=== PATIENT | male | born 1950 | race Asian ===

== ENCOUNTER 2025-09-15 06:04 | Inpatient (IN) | payer OTHER, MEDICAID ==
[2025-09-15] VITALS (8 sets, daily range): BP systolic 197; BP diastolic 94; PULSE 66–106; RESP 15–24; TEMP 103.2; O2SAT 96–100
[~2025-09-15] VITALS: Ht 165.1 cm; Wt 87.8 kg
--- NOTE | 2025-09-15 06:26 | ED.PDOC ---
History of Present Illness HPI Comments This is a 74-year-old male who comes in with chief complaint of shaking as well as a fever of 103. According to the patient's , the patient had dialysis starting at approximately 3:00 a.m. this morning. The patient did has full cycle and then after that the patient had chills and started shaking. They c alled 911 because the patient was stating that he was also having some shortness for breath. There has been no vomiting, diarrhea or hematemesis. The patient did not report these at home but EN route, the patient had one episode of vomiting that has somewhat dark brown. The paramedics state that the vital signs has been within normal limits. The patient's Accu-Chek was 140. The patient's oxygen saturation at that time was also 93%. Chief Complaint: General Weakness Time Seen by MD: 06:19 Reviewed Notes: Nurses Notes, Machine Filler Shredder Notes, Medications, Allergies (No al lergies to medications) Allergies: Coded Allergies: NO KNOWN ALLERGIES (Unverified , 09/15/25) Information Source: Patient, Emergency Med Personnel, Spouse Mode of Arrival: EMS Severity: Moderate Timing: Hours Duration: Since onset Prehospital treatment: Accucheck (140), Shipwright Helper, IVF, Other (The patient has a temperature of a 103) Associated signs and symptoms Shaking episode with fever and vomiting Past Medical History PAST MEDICAL HISTORY: ESRD, HTN Surgical History (Other): Peritoneal dialysis to the left lower quadrant Family History Family History: Reviewed,noncontributory to illness Social History Smoker: Non-Smoker Alcohol: Denies ETOH Use Drugs: Denies Drug Use Lives In: Home Constitutional: reports: chills, fever, weakness, others (Shaking episode that); denies: diaphoresis, fatigue, malaise, sweats EENTM: denies: blurred vision, double vision, ear bleeding, ear discharge, ear drainage, ear pain, ear ringing, eye pain, eye redness, hearing loss, mouth pain, mouth swelling, nasal discharge, nose bleeding, nose congestion, nose pain, photophobia, tearing, throat pain, throat swelling, voice changes, others Respiratory: reports: shortness of breath; denies: cough, hemoptysis, orthopnea, SOB at rest, SOB with excertion, stridor, wheezing, others Cardiovascular: denies: chest pain, dizzy spells, diaphoresis, Dyspnea on exertion, edema, irregular heart beat, left arm pain, lightheadedness, palpitations, PND, syncope, others Gastrointestinal: reports: vomiting; denies: abdomen distended, abdominal pain, blood streaked bowels, constipated, diarrhea, dysphagia, difficulty swallowing, hematemesis, melena, nausea, poor appetite, poor fluid intake, rectal bleeding, rectal pain, others Genitourinary: denies: burning, dysuria, flank pain, frequency, hematuria, inco ntinence, penile discharge, penile sore, pain, testicle pain, testicle swelling, urgency, others Neurological: denies: dizziness, fainting, headache, left sided numbness, left sided weakness, numbness, paresthesia, pre-existing deficit, right sided numbness, right sided weakness, seizure, speech problems, tingling, tremors, weakness, others Musculoskeletal: denies: back pain, gout, joint pain, joint swelling, muscle pain, muscle stiffness, neck pain, others Integumetry: denies: bruises, change in color, change in hair/nails, dryness, laceration, lesions, lumps, rash, wounds, others Allergic/Immunocompromised: denies: Difficulty Healing, Frequent Infections, Hives, Itching, others Hematologic/Lymphatic: denies: anemia, blood clots, easy bleeding, easy bruising, swollen glands, others Endocrine: denies: excessive hunger, excessive sweating, excessive thirst, excessive urination, flushing, intolerance to cold, intolerance to heat, unexplained weight gain, unexplained weight loss, others Psychiatric: denies: anxiety, bipolar disorder, depression, hopeless, panic disorder, schizophrenia, sleepless, suicidal, others Physical Exam General Appearance: Moderate Distress, Obese HEENT: Pale Conjuntivae (L), Pale Conjuntivae (R), Pharynx Normal, TMs Normal Neck: Full Range of Motion, Non-Tender, Normal, Normal Inspection Respiratory: Chest Non-Tender, Decreased Breath Sounds (Right side), No Accesso ry Muscle Use, Respiratory Distress Cardiovascular: No Edema, No JVD, No Murmur, No Gallop, Normal Peripheral Pulses, Regular Rate/Rhythm Breast Exam: Deferred Gastrointestinal: No Organomegaly, Non Tender, No Pulsatile Mass, Normal Bowel Sounds, Soft, Other (Peritoneal dialysis to the left lower quadrant) Genitalia: Deferred Pelvic: Deferred Rectal: Deferred Extremities: No calf tenderness, Normal capillary refill, No pedal edema Musculoskeletal : Apperance: Normal Neurologic: Alert, crusher feeder II-XII nml as Tested, Motor Weakness, Normal Affect, Normal Mood, No Sensory Deficits Cerebellar Function: Normal Reflexes: Normal Skin: Dry, Normal Color, Warm Lymphatic: No Adenopathy Was a procedure done? Was a procedure done?: No EKG EKG : Pulse Rate (adult): 87 [place]: Normal Cardiac Rhythm: NSR Hypertrophy: LAE ST: Nonsp Differential Dx Considerations may include: Appendicitis, cholecystitis, generalized weakness, dehydration X-Ray, Labs, Meds, VS Vital Signs Date Time Temp Pulse Resp B/P (MAP) Pulse Ox O2 Delivery O2 Flow Rate FiO2 09/15/25 06:26 87 09/15/25 06:10 103.7 90 18 141/82 96 103.7 09/15/25 06:06 87 Lab Test 09/15/25 07:04 Range/Units White Blood Count 16.1 H 4.4-10.8 10^3/uL Red Blood Count 4.03 L 4.5-5.90 10^6/uL Hemoglobin 12.3 L 13.5-17.5 g/dL Hematocrit 36.6 L 41.0-53.0 % Mean Corpuscular Volume 90.9 80.0-100.0 fL Mean Corpuscular Hemoglobin 30.5 28.0-32.0 pg Mean Corpuscular Hemoglobin Concent 33.6 32.0-36.0 g/dL Red Cell Distribution Width 13.6 11.8-14.3 % Platelet Count 179 140-450 10^3/uL Mean Platelet Volume 7.4 6.9-10.8 fL Neutrophils (%) (Auto) 95.6 H 37.0-80.0 % Lymphocytes (%) (Auto) 2.1 L 10.0-50.0 % Monocytes (%) (Auto) 1.0 0.0-12.0 % Eosinophils (%) (Auto) 0.8 0.0-7.0 % Basophils (%) (Auto) 0.5 0.0-2.0 % Neutrophils # (Auto) 15.4 H 1.6-8.6 10 ^3/uL Lymphocytes # (Auto) 0.3 L 0.4-5.4 10 ^3/uL Monocytes # (Auto) 0.2 0-1.3 10 ^3/uL Eosinophils # (Auto) 0.1 0-0.8 10 ^3/uL Basophils # (Auto) 0.1 0-0.2 10 ^3/uL Nucleated Red Blood Cells 0.0 % Sodium Level 138 136-145 mmol/L Potassium Level 4.6 3.5-5.1 mmol/L Chloride Level 104 98-107 mmol/L Carbon Dioxide Level 21 20-31 mmol/L Anion Gap 13 5-15 Blood Urea Nitrogen 46 H 9-23 mg/dL Creatinine 7.10 H 0.700-1.30 mg/dL Glomerular Filtration Rate Calc 8 >90 mL/min BUN/Creatinine Ratio 6.5 L 10.0-20.0 Serum Glucose 122 H 74-106 mg/dL Lactic Acid Level 2.3 *H 0.4-2.0 mmol/L Calcium Level 7.9 L 8.7-10.4 mg/dL Troponin I High Sensitivity 554 *H </=54 ng/L B-Type Natriuretic Peptide 222.36 0-100 pg/mL IV Hep-Lock was established. If we do administer seizure precautions we are limiting the fluid secondary to the patient having a history of ESRD Chest XR indicates: Right lower lobe airspace disease likely representing pneumonia. Follow-up x-rays recommended in 4-6 weeks to confirm resolution. There is a concern that the patient does have an ammonia. The patient will be started on vancomycin and Rocephin per sepsis protocol Again we are limiting the patient's fluid bolus. The patient has a white blood cell count of 16.1 The chemistry panel shows a BUN of 46 and a creatinine of 7.1 which is consistent with the patient's renal failure The patient's 1st lactic acid level is 2.3 The patient is being admitted with a diagnosis of sepsis Images Reviewed?: Images reviewed and evaluated by me Time of 1ST Reevaluation: 06:26 Reevaluation 1ST: Unchanged Patient Education/Counseling: Diagnosis, Treatment, Prognosis Family Education/Counseling: Diagnosis, Treatment, Prognosis SEPSIS Sepsis Screen Physician Orders Chest Portable (09/15/25 06:19) Urinalysis (09/15/25 06:19) Heplock Iv (09/15/25 06:19) Shipwright Helper (09/15/25 06:19) Blood Pressure (09/15/25 06:19) Pulse Oximetry (09/15/25 06:19) Blood Culture (09/15/25 06:19) Covid19 Antigen Ligia (09/15/25 ) Troponin-I Hs (09/15/25 07:23) Troponin-I Hs (09/15/25 09:23) Vital Signs Date Time Temp Pulse Resp B/P (MAP) Pulse Ox O2 Delivery O2 Flow Rate FiO2 09/15/25 06:26 87 09/15/25 06:10 103.7 90 18 141/82 96 103.7 09/15/25 06:06 87 Laboratory Tests Test 09/15/25 07:04 Lactic Acid Level 2.3 mmol/L (0.4-2.0) *H White Blood Count 16.1 10^3/uL (4.4-10.8) H Departure 1 Departure Time of Disposition: 08:09 Impression: Primary Impression: Sepsis Qualified Codes: A41.9 - Sepsis, unspecified organism Additional Impressions: Right lower lobe pneumonia Qualified Codes: J18.9 - Pneumonia, unspecified organism ESRD on dialysis Disposition: ADMITTED INPATIENT Admit to: Tele Condition: Fair Critical Care Note Critical Care Time?: Yes (45 min-critical care time only) Stability Stability form required: Yes Unstable for transfer: Telemetry monitoring (Telemetry monitoring required), ED Physician Assesment (Clinical assesment) Heart Score Heart Score: Heart Score Response (Comments) Value History N/A 0 EKG N/A 0 Age N/A 0 Risk Factors N/A 0 Troponin N/A 0 Total 0 I personally scribed for FERNANDO CHACON MD ([email or web address]) on 09/15/25 at 07:08. Electronically submitted by Agusto العراقي ([email or web address]). FERNANDO CHACON MD Sep 15, 2025 06:26
--- NOTE | 2025-09-15 07:01 | DVH ---
CHEST RADIOGRAPH Indication: weakness Technique: Single frontal view of the chest was obtained COMPARISON: None FINDINGS: Patchy airspace disease within the right lower lung. Left lung is clear. Cardiac silhouette is enlarged. No overt pulmonary edema. Bones and soft tissues demonstrate no significant abnormality. IMPRESSION: Right lower lobe airspace disease likely representing pneumonia. Follow-up x- rays recommended in 4-6 weeks to confirm resolution.
--- NOTE | 2025-09-15 07:07 | ECG ---
[facility] Test Date: 2025-09-15 Test Time: 06:06:59 Pat Name: SUSANA GARDUNO Department: ED Room: 0207T Gender: M Bunch Breaker: NORMAN : 1950 Requested By: EMERGENCY EMERGENCY Order Number: [id number] Reading MD: David Rush Measurements Intervals [place] Rate: 87 P: 76 [place]: 164 QRS: 7 QRSD: 145 T: -20 QT: 367 QTc: 442 Interpretive Statements Sinus rhythm LAE, consider biatrial enlargement Right bundle branch block Artifact in lead(s) V6 Electronically Signed On 09-16-2025 15:45:58 PST by David Rush Please click the below link to view image of tracing.
[2025-09-15 07:31] LABS: Hematocrit 36.6 % (41.0-53.0); Hemoglobin 12.3 g/dL (13.5-17.5); Mean Corpuscular Hemoglobin 30.5 pg (28.0-32.0); Mean Corpuscular Volume 90.9 fL (80.0-100.0); Nucleated Red Blood Cells % 0.0 %
[2025-09-15 07:51] LABS: Chloride 104 mmol/L (98-107); Potassium 4.6 mmol/L (3.5-5.1); Sodium 138 mmol/L (136-145)
[2025-09-15 07:52] LABS: Anion Gap 13 (5-15); Calcium 7.9 mg/dL (8.7-10.4); Carbon Dioxide 21 mmol/L (20-31)
[2025-09-15 07:57] LABS: BUN/Creatinine Ratio 6.5 (10.0-20.0); Blood Urea Nitrogen 46 mg/dL (9-23); Glucose 122 mg/dL (74-106)
[2025-09-15 08:05] LABS: Lactic Acid w/Reflex 2.3 mmol/L (0.4-2.0)
[2025-09-15] MEDS: VANCOMYCIN 1GM/250ML KIT 250 ML IV ONE (09:20)
[2025-09-15] MEDS: ACETAMINOPHEN 325 MG TAB PO ONE ×2 (09:43→15:51)
[2025-09-15 09:49] LABS: COVID19 ANTIGEN SOFIA FIA NEGATIVE (NEGATIVE)
[2025-09-15] MEDS: ENOXAPARIN SOD 100 MG/1 ML SYRINGE SC ONE (10:41)
[2025-09-15] MEDS: SODIUM CHLORIDE 0.9% 1,000 ML IV ONE (11:23)
[2025-09-15 11:46] LABS: Urine Protein, UAD 2+ (Negative)
--- NOTE | 2025-09-15 11:47 | DVHINCON2 ---
Date Seen: Sep 15, 2025 Referring Physician MD Gracie Reason for Consultation Elevated troponin History of Present Illness This is a pleasant 74-year-old man who presented to the emergency room via EMS with a chief complaint of ALOC earlier today. Information obtained from patient who is A&O x4 and at bedside. Complaint of generalized weakness associated with chills, a productive cough with clear sputum, pyrexia, and nausea and vomiting for the past two days. The patient developed episodes of confusions earlier today prompting family to call 911. Denies chest pain, palpitations, diaphoresis, or syncopal events. Denies significant history of cardiovascular disease. Presents with trending troponin levels with latest in the 1,200s ng/L. He has undergone multiple 12 lead electrocardiogram revealing a sinus rhythm with an associated right bundle branch block. Significant medical history includes hypertension, dyslipidemia, chronic kidney disease stage 4 on peritoneal dialysis, and obesity. Past Medical History Past medical history reviewed. No other significant than mentioned above. Past Surgical History Peritoneal dialysis access Right knee replacement Family History Family history reviewed. Not significant for cardiovascular disease. Social History Denies the use of illicit drugs, alcohol, or tobacco use. Allergies: Coded Allergies: NO KNOWN ALLERGIES (Unverified , 09/15/25) Home Meds Home medications reviewed. Current Medications Current Medications Medications (Trade) Dose Ordered Sig/Yuri Route PRN Reason Start Time Stop Time Status Last Admin Enoxaparin Sodium (Lovenox) 90 mg DAILY SC 09/16/25 10:00 Review of Systems Constitutional: Generalized weakness Ears, Nose, & Throat: No symptom reported Eyes: No symptom reported Neurological: ALOC Pulmonary/Respiratory: SOB with productive cough with clear sputum Cardiovascular: No symptom reported Gastrointestinal: N/V Genitourinary: No symptom reported Musculoskeletal: No symptom reported Skin: No symptom reported Psychiatric: No symptom reported Endocrine: No symptom reported Hemotologic/Lymphatic: No symptom reported Vital Signs Vital Signs Date Time Temp Pulse Resp B/P (MAP) Pulse Ox O2 Delivery O2 Flow Rate FiO2 09/15/25 10:00 74 22 117/69 (85) 95 09/15/25 09:43 98.7 09/15/25 08:25 Room Air* 0 21 Physical Exam General Appearance: Cooperative. Well developed. Obese. In no acute distress Head Exam: Normal inspection Neck Exam: Normal inspection. Non-tender. Normal alignment Pulmonary/Respiratory: Chest non-tender. Diminished R>L bilateral breath sounds Cardiovascular/Chest: Regular rate and rhythm. S1, S2. SR with associated RBBB. No murmurs. No JVD. Peripheral Pulses: 2+ Radial (R). 2+ Radial (L). 2+ Pedal (R). 2+ Pedal (L) Abdominal Exam: Normal bowel sounds. Soft. Ankle Exam: Negative ankle edema Lower extremities: Negative lower extremity edema Neuro/Mental Status: A&O x4. Coherent Thoughts/Psych: Normal thought pattern. Appropriate mood and affect. Good judgement and insight Appearance: In no acute distress Skin Exam: Normal inspection. Normal color. Warm. Dry Labs/Diagnostic Data Labs Test 09/15/25 11:07 09/15/25 10:39 09/15/25 10:35 09/15/25 09:51 Range/Units Troponin I High Sensitivity 2551 *H </=54 ng/L Lactic Acid Level 1.4 0.4-2.0 mmol/L Test 09/15/25 08:50 09/15/25 08:37 09/15/25 07:04 Range/Units SARS-CoV-2 Antigen (Rapid) Negative NEGATIVE Thyroid Stimulating Hormone (TSH) 1.14 0.55-4.78 uIU/mL White Blood Count 16.1 H 4.4-10.8 10^3/uL Red Blood Count 4.03 L 4.5-5.90 10^6/uL Hemoglobin 12.3 L 13.5-17.5 g/dL Hematocrit 36.6 L 41.0-53.0 % Mean Corpuscular Volume 90.9 80.0-100.0 fL Mean Corpuscular Hemoglobin 30.5 28.0-32.0 pg Mean Corpuscular Hemoglobin Concent 33.6 32.0-36.0 g/dL Red Cell Distribution Width 13.6 11.8-14.3 % Platelet Count 179 140-450 10^3/uL Mean Platelet Volume 7.4 6.9-10.8 fL Neutrophils (%) (Auto) 95.6 H 37.0-80.0 % Lymphocytes (%) (Auto) 2.1 L 10.0-50.0 % Monocytes (%) (Auto) 1.0 0.0-12.0 % Eosinophils (%) (Auto) 0.8 0.0-7.0 % Basophils (%) (Auto) 0.5 0.0-2.0 % Neutrophils # (Auto) 15.4 H 1.6-8.6 10 ^3/uL Lymphocytes # (Auto) 0.3 L 0.4-5.4 10 ^3/uL Monocytes # (Auto) 0.2 0-1.3 10 ^3/uL Eosinophils # (Auto) 0.1 0-0.8 10 ^3/uL Basophils # (Auto) 0.1 0-0.2 10 ^3/uL Nucleated Red Blood Cells 0.0 % Sodium Level 138 136-145 mmol/L Potassium Level 4.6 3.5-5.1 mmol/L Chloride Level 104 98-107 mmol/L Carbon Dioxide Level 21 20-31 mmol/L Anion Gap 13 5-15 Blood Urea Nitrogen 46 H 9-23 mg/dL Creatinine 7.10 H 0.700-1.30 mg/dL Glomerular Filtration Rate Calc 8 >90 mL/min BUN/Creatinine Ratio 6.5 L 10.0-20.0 Serum Glucose 122 H 74-106 mg/dL Hemoglobin A1c 5.4 <5.7 % A1C Calcium Level 7.9 L 8.7-10.4 mg/dL B-Type Natriuretic Peptide 222.36 0-100 pg/mL Assessment Sepsis with pneumonia Non ST-elevation myocardial infarction, ?Type I Rule out structural heart disease Right bundle branch block Hypertension Dyslipidemia CKD stage 4 on peritoneal dialysis Obesity Plan/Recommendation (Dr. Rush) Case discussed in full detail with Dr. Rush. The patient presents with sepsis secondary to pneumonia, non-progressive ST-T wave changes, and he is chest pain- free. Suspected as a possible NSTEMI type 2. We will continue troponin trends and initiate therapeutic Lovenox along with loading dose of ASA. In the meantime, obtain a transthoracic echocardiogram to rule out structural heart disease. Continue chest pain protocol. Monitor ECG changes. We will continue monitor closely. Further orders per clinical course. Thank you for allowing us to participate in this patient's care. Please call if you have any questions or concerns. Critical care time: 45 minutes. This medical document was created using an electronic medical record system with voice recognition software and computerized dictation system. Although this document has been carefully reviewed, there might still be some phonetic and typographical errors. Occasional wrong-word or ``sound-alike substitutions may have occurred due to the inherent limitations of voice recognition software. These areas are purely typographical due to imperfections of the software programs and do not reflect any compromise in the patient's medical care. Please read the chart carefully and recognize, using context, where these substitutions have occurred. Plan discussed with: Patient, Spouse, Other NYHA Physical activity limitations: NA Date of Service: Sep 15, 2025 Billing Provider: CELENA CAT Cardiology Common Codes: [id number] CARE 30-74 MIN CELENA CAT Sep 15, 2025 11:47
[2025-09-15 12:16] LABS: Triglycerides 74.0 mg/dL (< 150)
[2025-09-15 12:17] LABS: Magnesium 1.9 mg/dL (1.6-2.6)
[2025-09-15 12:18] LABS: Cholesterol 131.0 mg/dL (< 200); HDL Cholesterol 50.0 mg/dL (40-59)
[2025-09-15] MEDS ORDERED: NITROGLYCERIN 0.4 MG SL TAB SL PRN ×2 (12:30→17:30)
[2025-09-15] MEDS ORDERED: MORPHINE SULFATE INJ 2 MG/ml SYRG IV PRN ×2 (12:30→17:30)
--- NOTE | 2025-09-15 13:27 | DVHSR ---
APPROVED REPORT EXAM: LIMITED Two-dimensional and M-mode echocardiogram with Doppler and color Doppler. Blood Pressure: 112/64 mmHg INDICATION Arrhythmia NSTEMI RISK FACTORS Height: 65, Weight: 190 DIMENSIONS LVDd 4.5 (3.8-5.7cm) LA (2D) (1.9-4.0cm) Aortic Root (2.0-3.7cm) LVDs 3.2 (2.5-4.0cm) LA (MM) (1.9-4.0cm) Aortic Cusp Exc (1.5-2.0cm) EF (%) 55.0 (55-70%) Rt. Atrium (1.9-4.0cm) Asc. Aorta cm Mitral Valve Mitral Mitral Stenosis E wave 1.17m/s MV Mean GR. mmHg A wave 0.97m/s MV Peak GR. mmHg E/A ratio 1.2 2D MVA cm2 DECEL Time 192ms PRESS 1/2 Time ms Aortic Valve Aortic Valve Aortic Stenosis V1 1.18m/s AO Mean GR. 12mmHg V2 2.39m/s AO Peak GR. 23mmHg AI P 1/2 Time 468.75ms Other Information Technically limited study due to body habitus, patient position and patient moving throughout the whole study. Conclusion Technically good study. Difficult acoustic windows and off axis views. Aortic root enlargement. Valves are normal. Mild dilation of the sinuses of Valsalva. EF of 60% with normal RV function. Mild aortic insufficiency. No pericardial effusion masses or vegetations.
[2025-09-15] MEDS ORDERED: SIMV20TA20 PO (15:06)
[2025-09-15] MEDS ORDERED: CARV25TA55 PO (15:06)
[2025-09-15] MEDS ORDERED: LOSA-535 PO (15:06)
[2025-09-15] MEDS ORDERED: SEVE800T10 PO (15:06)
[2025-09-15] MEDS ORDERED: AMLO1TAB22 PO (15:06)
[2025-09-15] MEDS ORDERED: HYDR50TA47 PO (15:06)
--- NOTE | 2025-09-15 15:10 | DVHHP2 ---
History of Present Illness Reason for Visit: SOB History of Present Illness Jaime Aparicio is a 74-year-old male with past medical history of ESRD on PD and hypertension who presents to the ED with fever, chills, and shortness of breath while finishing up dialysis on his own. Per Juanain at bedside she reports that he does dialysis himself nightly. Patient also reports that he is compliant with his medications. Patient also reports that he ambulates with a cane. Patient denies any recent trauma or injury, recent sick contacts, recent travels, chest pain, abdominal pain, nausea, vomiting, diarrhea, or urinary symptoms. Cardiovascular: HTN Renal/: Chronic renal failure Past Surgical History: Other (PD catheter) Family History: None Smoke: No ALCOHOL: none Drugs: None Lives: with Family Domestic Violence: Neg Review of Systems Constitutional: Yes: Fever, Chills Respiratory: Shortness of breath Allergies: Coded Allergies: NO KNOWN ALLERGIES (Unverified , 09/15/25) Medications Current Medications Medications Dose Ordered Sig/Yuri Route Start Time Stop Time Status Last Admin Dose Admin Enoxaparin Sodium 90 mg DAILY SC 09/16/25 10:00 Nitroglycerin 0.4 mg Q5MINP PRN SL 09/15/25 12:30 Morphine Sulfate 2 mg Q30M PRN IV 09/15/25 12:30 Exam Vital Signs Vital Signs Date Time Temp Pulse Resp B/P (MAP) Pulse Ox O2 Delivery O2 Flow Rate FiO2 09/15/25 14:00 65 20 114/64 (81) 100 09/15/25 12:00 98.9 98.9 09/15/25 08:25 Room Air* 0 21 General Appearance: Alert, Oriented X3, Cooperative, mild distress HEENT: Atraumatic, PERRLA, EOMI, Mucous membr. moist/pink Respiratory: Other (Increased work of breathing) Cardiovascular: Regular rate, Normal S1, Normal S2 Abdominal: Normal bowel sounds, Soft Extremities: No clubbing, No cyanosis Neuro: Normal speech, Normal tone, Sensation intact Psych/Mental Status: Mental status NL, Mood NL Labs/Xrays Labs Test 09/15/25 11:07 09/15/25 10:39 09/15/25 10:35 09/15/25 09:51 Range/Units Urine Color Light-yellow Yellow Urine Clarity Clear Clear Urine pH 7.5 5.0-9.0 Urine Specific Clear 1.012 1.001-1.035 Urine Protein 2+ H Negative Urine Ketones Negative Negative Urine Blood Trace H Negative /uL Urine Nitrite Negative Negative Urine Bilirubin Negative Negative Urine Urobilinogen Normal Negative mg/dL Urine Leukocyte Esterase Negative Negative /uL Urine RBC None seen 0 - 3 /hpf Urine Microscopic WBC 0-3 /HPF Urine Squamous Epithelial Cells None seen <5 /hpf Urine Bacteria None seen None Seen /hpf Urine Glucose Trace Normal mg/dL Troponin I High Sensitivity 2551 *H </=54 ng/L Influenza Type A Antigen Negative Negative Influenza Type B Antigen Negative Negative Lactic Acid Level 1.4 0.4-2.0 mmol/L Test 09/15/25 08:50 09/15/25 08:37 09/15/25 07:04 Range/Units SARS-CoV-2 Antigen (Rapid) Negative NEGATIVE Magnesium Level 1.9 1.6-2.6 mg/dL Triglycerides Level 74 < 150 mg/dL Cholesterol Level 131 < 200 mg/dL LDL Cholesterol 67 < 100 mg/dL HDL Cholesterol 50 40-59 mg/dL Thyroid Stimulating Hormone (TSH) 1.14 0.55-4.78 uIU/mL White Blood Count 16.1 H 4.4-10.8 10^3/uL Red Blood Count 4.03 L 4.5-5.90 10^6/uL Hemoglobin 12.3 L 13.5-17.5 g/dL Hematocrit 36.6 L 41.0-53.0 % Mean Corpuscular Volume 90.9 80.0-100.0 fL Mean Corpuscular Hemoglobin 30.5 28.0-32.0 pg Mean Corpuscular Hemoglobin Concent 33.6 32.0-36.0 g/dL Red Cell Distribution Width 13.6 11.8-14.3 % Platelet Count 179 140-450 10^3/uL Mean Platelet Volume 7.4 6.9-10.8 fL Neutrophils (%) (Auto) 95.6 H 37.0-80.0 % Lymphocytes (%) (Auto) 2.1 L 10.0-50.0 % Monocytes (%) (Auto) 1.0 0.0-12.0 % Eosinophils (%) (Auto) 0.8 0.0-7.0 % Basophils (%) (Auto) 0.5 0.0-2.0 % Neutrophils # (Auto) 15.4 H 1.6-8.6 10 ^3/uL Lymphocytes # (Auto) 0.3 L 0.4-5.4 10 ^3/uL Monocytes # (Auto) 0.2 0-1.3 10 ^3/uL Eosinophils # (Auto) 0.1 0-0.8 10 ^3/uL Basophils # (Auto) 0.1 0-0.2 10 ^3/uL Nucleated Red Blood Cells 0.0 % Sodium Level 138 136-145 mmol/L Potassium Level 4.6 3.5-5.1 mmol/L Chloride Level 104 98-107 mmol/L Carbon Dioxide Level 21 20-31 mmol/L Anion Gap 13 5-15 Blood Urea Nitrogen 46 H 9-23 mg/dL Creatinine 7.10 H 0.700-1.30 mg/dL Glomerular Filtration Rate Calc 8 >90 mL/min BUN/Creatinine Ratio 6.5 L 10.0-20.0 Serum Glucose 122 H 74-106 mg/dL Hemoglobin A1c 5.4 <5.7 % A1C Calcium Level 7.9 L 8.7-10.4 mg/dL B-Type Natriuretic Peptide 222.36 0-100 pg/mL CHEST RADIOGRAPH Indication: weakness Technique: Single frontal view of the chest was obtained COMPARISON: None FINDINGS: Patchy airspace disease within the right lower lung. Left lung is clear. Cardiac silhouette is enlarged. No overt pulmonary edema. Bones and soft tissues demonstrate no significant abnormality. IMPRESSION: Right lower lobe airspace disease likely representing pneumonia. Follow-up x- rays recommended in 4-6 weeks to confirm resolution. SEPSIS Sepsis Screen Date sepsis recognized/suspect: Sep 15, 2025 Time Sepsis recognized/suspect: 824 Recent Procedure: No On Antibiotic Therapy: No Respiratory Rate >20: No Heart Rate >90: No Temp<36 C (96.8 F) or >38.3 C: No SBP <90 or MAP <65 mmHG: No New Acute Mental Status Change: No Is the patient on CPAP, BIPAP,: No Physician Orders * Cardiology Consult (09/15/25 09:13) Echo 2d Mode Cardiac Dop (09/15/25 10:19) Enoxaparin Sodium (Lovenox) (09/16/25 10:00) Troponin-I Hs (09/15/25 14:00) Troponin-I Hs (09/15/25 16:00) Nitroglycerin Sublingual (Ntrostat Subli (09/15/25 12:30) Morphine Sulfate Injection (09/15/25 12:30) Stat Ekg For Chest Pain (09/15/25 12:22) Notify Of Changes From Base (09/15/25 12:22) Scale Technician For 24 Hours (09/15/25 12:22) Emergency Dysrhythmia Protocol (09/15/25 12:22) Rhythm Strips Once Every Shift (09/15/25 12:22) Oxygen By Nasal Cannula (09/15/25 12:22) Vital Signs Date Time Temp Pulse Resp B/P (MAP) Pulse Ox O2 Delivery O2 Flow Rate FiO2 09/15/25 14:00 65 20 114/64 (81) 100 09/15/25 12:00 98.9 74 15 117/58 (77) 95 98.9 09/15/25 12:00 74 09/15/25 11:54 73 09/15/25 10:00 74 22 117/69 (85) 95 09/15/25 09:43 98.7 09/15/25 08:52 74 09/15/25 08:25 73 20 97 Room Air* 0 21 09/15/25 08:25 99.4 73 20 112/64 (80) 97 99.4 Laboratory Tests Test 09/15/25 07:04 09/15/25 09:51 Lactic Acid Level 2.3 mmol/L (0.4-2.0) *H 1.4 mmol/L (0.4-2.0) White Blood Count 16.1 10^3/uL (4.4-10.8) H Medications Medications Dose Ordered Sig/Yuri Route Start Time Stop Time Status Last Admin Dose Admin Aspirin 325 mg ONCE ONCE PO 09/15/25 10:30 09/15/25 10:33 DC 09/15/25 10:40 325 MG Ceftriaxone Sodium 50 ml @ 100 mls/hr ONCE ONCE IV 09/15/25 08:15 09/15/25 08:52 DC 09/15/25 08:55 100 MLS/HR Enoxaparin Sodium 90 mg ONCE ONCE SC 09/15/25 10:30 09/15/25 10:33 DC 09/15/25 10:41 90 MG Sodium Chloride 1,000 ml @ 1,000 mls/hr Q1H ONCE IV 09/15/25 11:15 09/15/25 12:14 DC 09/15/25 11:23 1,000 MLS/HR Vancomycin HCl 250 ml @ 250 mls/hr ONCE ONCE IV 09/15/25 08:15 09/15/25 09:14 DC 09/15/25 09:20 250 MLS/HR Assessment/Plan Assessment/Plan Assessment Pyrexia NSTEMI likely type 2 Leukocytosis likely due to pneumonia Lactic acidosis rule out sepsis versus SIRS History of ESRD on peritoneal dialysis History of hypertension Plan Admit to tele Antipyretics Cooling measures Duo nebs Antiemetics Pain management Blood cultures Lactic noted Flu test UA COVID test Nitro given in ED NS 1 L given in ED IV antibiotics-vancomycin + ceftriaxone Troponin noted Mag level TSH Hemoglobin A1c Lipid Echo BNP Chest x-ray EKG Diet Home medications reconciled DVT prophylaxis-therapeutic Lovenox PUD prophylaxis-PPIs Discussed plan of care with patient and nurse Nephrology consult Cardiology consulted by ED PT eval-patient uses cane with ambulation [id number] Preventive counseling healthy eating habits, physical activity, and regular checkups Plan discussed with: Patient, Spouse Date of Service: Sep 15, 2025 Billing Provider: GABRIELE LAM Common Visit Codes: [id number] INP/OBS CARE (HIGH) Secondary Visit Codes: [id number] COUNSELING IND GABRIELE LAM Sep 15, 2025 15:10
[2025-09-15] MEDS ORDERED: VANCOMYCIN PER PHARMACY 0 MG IV SCH (15:15)
[2025-09-15] MEDS: ALBUTEROL SULF 2.5 MG/0.5ML(0.5%) NEB SOLN NEB ONE (16:12)
[2025-09-15] MEDS: hydrALAZINE HCL 20 MG/ML VL IV ONE (16:46)
[2025-09-15 17:11] LABS: INR 1.08 (0.9-1.15); Partial Thromboplastin Time 46.7 SEC (24.5-34.5); Prothrombin Time 11.4 sec (9.3-11.8)
[2025-09-15] MEDS: MAGNESIUM SULFATE 1GM/100ML 100 ML IV ONE (18:10)
[2025-09-15] MEDS: SEVELAMER 800 MG TAB PO SCH (18:10)
[2025-09-15] MEDS: PERITONEAL DIALYSIS 2.5% SOLN 2,000 ML IP SCH (19:01)
[2025-09-15] MEDS: ALBUTEROL SULF 2.5 MG/0.5ML(0.5%) NEB SOLN NEB SCH (19:11)
[2025-09-15] MEDS: IPRATROPIUM BROM 0.5 MG/2.5ML INH SOL NEB SCH (19:11)
[2025-09-15] MEDS: ACETAMINOPHEN 325 MG TAB PO PRN (20:45)
[2025-09-15] MEDS: HEPARIN DRIP/D5W 100UNITS/ML 250 ML IV SCH (21:31)
[2025-09-15] MEDS: CARVEDILOL 12.5 MG TAB PO SCH (22:00)
[2025-09-15] MEDS: ATORVASTATIN 20 MG TAB PO SCH (23:49)
[2025-09-16] VITALS (15 sets, daily range): BP systolic 95–123; BP diastolic 49–71; PULSE 56–77; RESP 16–19; TEMP 98.9–99.1; O2SAT 96–100
[2025-09-16 03:17] LABS: Hematocrit 32.2 % (41.0-53.0); Hemoglobin 10.8 g/dL (13.5-17.5); Mean Corpuscular Hemoglobin 30.7 pg (28.0-32.0); Mean Corpuscular Volume 91.6 fL (80.0-100.0); Nucleated Red Blood Cells % 0.0 %
[2025-09-16 03:59] LABS: INR 1.14 (0.9-1.15); Prothrombin Time 11.9 sec (9.3-11.8)
[2025-09-16 04:00] LABS: Partial Thromboplastin Time 103.6 SEC (24.5-34.5)
[2025-09-16] MEDS: HEPARIN DRIP/D5W 100UNITS/ML 250 ML IV SCH (05:09)
[2025-09-16 09:18] LABS: Hematocrit 33.8 % (41.0-53.0); Hemoglobin 11.1 g/dL (13.5-17.5); Mean Corpuscular Hemoglobin 30.4 pg (28.0-32.0); Mean Corpuscular Volume 92.6 fL (80.0-100.0); Nucleated Red Blood Cells % 0.0 %
--- NOTE | 2025-09-16 09:37 | DVHPN2 ---
Consult Progress Note Date Seen: Sep 16, 2025 Subjective Review of Systems: CVS:Normal, RESPIRATORY:Normal, NEURO:Normal Objective vital signs Vital Sign Date Time Temp Pulse Resp B/P (MAP) Pulse Ox O2 Delivery O2 Flow Rate FiO2 09/16/25 07:37 58 18 99 09/16/25 07:30 Nasal Cannula* 3 32 09/16/25 06:00 112/57 (75) 09/16/25 02:00 97.5 97.5 Total Intake and Output 09/15/25 09/15/25 09/16/25 15:00 23:00 07:00 Intake Total 1300 ml 100 ml 4000 ml Balance 1300 ml 100 ml 4000 ml medications Current Medications Medications Dose Ordered Sig/Yuri Route Start Time Stop Time Status Last Admin Dose Admin Nitroglycerin 0.4 mg Q5MINP PRN SL 09/15/25 12:30 Morphine Sulfate 2 mg Q30M PRN IV 09/15/25 12:30 Amlodipine Besylate 5 mg BID PO 09/15/25 22:00 Hydralazine HCl 50 mg TID PO 09/15/25 22:00 Losartan Potassium 100 mg DAILY PO 09/16/25 10:00 Sevelamer HCl 800 mg TIDWM PO 09/15/25 18:00 09/15/25 18:10 800 MG Carvedilol 25 mg Q12HR PO 09/15/25 22:00 Atorvastatin Calcium 20 mg HS PO 09/15/25 22:00 09/15/25 23:49 20 MG Furosemide 40 mg DAILY IV 09/16/25 10:00 Vancomycin HCl 0 ml @ 0 mls/hr PER PHARMACY IV 09/15/25 15:15 Ceftriaxone Sodium 50 ml @ 100 mls/hr DAILY@09 IV 09/16/25 09:00 Albuterol 2.5 mg Q4HWA NEB 09/15/25 18:00 09/16/25 07:30 2.5 MG Ipratropium Max 0.5 mg Q4HWA NEB 09/15/25 18:00 09/16/25 07:30 0.5 MG Aspirin 81 mg DAILY PO 09/16/25 10:00 Acetaminophen 650 mg Q6HP PRN PO 09/15/25 16:30 09/15/25 20:45 650 MG Peritoneal Dialysis Solution 2,000 ml @ 0 mls/hr Q6HR IP 09/15/25 18:00 09/16/25 06:07 1,500 MLS/HR Mupirocin 1 applic DAILY TOP 09/16/25 10:00 Nitroglycerin 0.4 mg Q5MINP PRN SL 09/15/25 17:30 UNV Morphine Sulfate 2 mg Q30M PRN IV 09/15/25 17:30 UNV Ceftriaxone Sodium 50 ml @ 100 mls/hr Q24H IV 09/16/25 23:00 Heparin Sodium/ Dextrose 250 ml @ 7 mls/hr Q24H IV 09/16/25 05:00 09/16/25 05:09 7 MLS/HR Examination: GENERAL:Normal, LUNGS:Normal, CVS:Normal, NEURO:Normal laboratory and microbiology Test 09/16/25 08:52 Range/Units Serum Glucose Pending Problem List/Assessment/Plan Problem List/Assessment/Plan Sepsis with pneumonia NSTEMI, likely type II secondary to above Right bundle branch block Hypertension Dyslipidemia CKD stage 4 on peritoneal dialysis Obesity * Transthoracic echocardiogram revealed LVEF 60% with normal RV function. Aort ic root enlargement. Mild aortic insufficiency * 12-lead electrocardiograms x 6 revealed a sinus rhythm with an associated right bundle branch block and non-discernible either progressive ST-T wave segment changes * Troponin levels peaked at 4,883 ng/L. BNP level 222 Plan/Recommendation (Dr. Rush) The patient presents with sepsis secondary to pneumonia, non-progressive ST-T wave segment changes, and he is chest pain-free. A transthoracic echocardiogram revealed a normal LV function and no wall motion abnormalities. Troponin levels have peaked and now trending down. Continue septic work-up and management per primary care team. There is no further cardiac work-up indicated at this time. Kindly call with any questions or concerns. Thank you for allowing us to participate in this patient's care. Critical care time: 30 minutes. This medical document was created using an electronic medical record system with voice recognition software and computerized dictation system. Although this document has been carefully reviewed, there might still be some phonetic and typographical errors. Occasional wrong-word or ``sound-alike substitutions may have occurred due to the inherent limitations of voice recognition software. These areas are purely typographical due to imperfections of the software programs and do not reflect any compromise in the patient's medical care. Please read the chart carefully and recognize, using context, where these substitutions have occurred. Plan discussed with: Patient, Spouse, Son Date of Service: Sep 16, 2025 Billing Provider: CELENA CAT Cardiology Common Codes: [id number]-[id number] CARE 30-74 MIN CELENA CAT Sep 16, 2025 09:36
[2025-09-16 09:40] LABS: Alanine Aminotransferase 27 U/L (7-40); Albumin 3.3 g/dL (3.2-4.8); Alkaline Phosphatase 73 U/L (46-116); Anion Gap 12 (5-15); BUN/Creatinine Ratio 5.6 (10.0-20.0); Carbon Dioxide 22 mmol/L (20-31); Chloride 103 mmol/L (98-107); Potassium 4.2 mmol/L (3.5-5.1); Sodium 137 mmol/L (136-145); Total Protein 6.2 g/dL (5.7-8.2)
[2025-09-16 09:41] LABS: Bilirubin, Total 0.3 mg/dL (0.2-1.0)
[2025-09-16 09:52] LABS: Blood Urea Nitrogen 38 mg/dL (9-23); Calcium 7.4 mg/dL (8.7-10.4); Glucose 111 mg/dL (74-106)
[2025-09-16] MEDS ORDERED: ENOXAPARIN SOD 100 MG/1 ML SYRINGE SC SCH (10:00)
--- NOTE | 2025-09-16 10:00 | DVH ---
Bilateral Chest Sonogram Date: 09/16/2025 08:50 AM Clinical history: PNA Findings: Limited sonographic evaluation of the right and left chest was performed to localize and guicho fluid for thoracentesis. No fluid is visualized. IMPRESSION: No free fluid END IMPRESSION:
[2025-09-16] MEDS: ENOXAPARIN SOD 100 MG/1 ML SYRINGE SC SCH (10:37)
[2025-09-16] MEDS: FUROSEMIDE 40 MG/4 ML VIAL IV SCH (10:37)
[2025-09-16] MEDS: LOSARTAN POTASSIUM 50 MG TAB PO SCH (10:39)
[2025-09-16 12:20] LABS: INR 1.07 (0.9-1.15); Partial Thromboplastin Time 56.0 SEC (24.5-34.5); Prothrombin Time 11.3 sec (9.3-11.8)
[2025-09-16] MEDS: MUPIROCIN 2% OINT 15gm or 22gm TOP SCH (13:34)
[2025-09-16] MEDS: VANCOMYCIN 500mg/100mL 100 ML IV ONE (14:00)
[2025-09-16] MEDS ORDERED: FURO20TA3 PO (15:46)
[2025-09-16] MEDS ORDERED: LACT10SO3 PO (15:46)
[2025-09-16] MEDS ORDERED: SEVE800T8 PO (15:46)
[2025-09-16] MEDS ORDERED: CALC0.25 PO (15:46)
[2025-09-16] MEDS ORDERED: B-CO-5 PO (15:46)
[2025-09-16] MEDS ORDERED: FAMO20TA10 PO (15:46)
[2025-09-16] MEDS ORDERED: ASPI-543 PO (15:46)
[2025-09-16] MEDS ORDERED: SODI10PA PO (15:46)
[2025-09-17] VITALS (19 sets, daily range): BP systolic 100–139; BP diastolic 57–80; PULSE 54–96; RESP 16–20; TEMP 97–99.2; O2SAT 94–100
[2025-09-17 05:58] LABS: Hematocrit 33.0 % (41.0-53.0); Hemoglobin 11.0 g/dL (13.5-17.5); Mean Corpuscular Hemoglobin 31.0 pg (28.0-32.0); Mean Corpuscular Volume 92.8 fL (80.0-100.0); Nucleated Red Blood Cells % 0.0 %
--- NOTE | 2025-09-17 14:43 | DVHPN2 ---
Reviewed: Care Plan, H&P, Labs, Medications Changes from previous H/P or p: No Changes General: Per HPI Respiratory: Shortness of breath Objective Vitals Vital Signs Date Time Temp Pulse Resp B/P (MAP) Pulse Ox O2 Delivery O2 Flow Rate FiO2 09/17/25 13:27 59 18 100 09/17/25 13:21 Room Air 09/17/25 13:21 0 21 09/17/25 12:43 97.0 111/68 (82) 97.0 Intake/Output Intake and Output 09/17/25 07:00 Intake Total 5150 ml Output Total 100 ml Balance 5050 ml Intake Oral 600 ml IV Total 1550 ml Intraperitoneal 3000 ml Output Urine Total 100 ml # Voids 2 General Appearance: Alert, Oriented X3, Cooperative Cardiovascular: Regular rate, Normal S1 Abdomen: Normal bowel sounds Neuro: Normal gait, Normal speech Medications Current Medications Medications Dose Ordered Sig/Yuri Route Start Time Stop Time Status Last Admin Dose Admin Nitroglycerin 0.4 mg Q5MINP PRN SL 09/15/25 12:30 Morphine Sulfate 2 mg Q30M PRN IV 09/15/25 12:30 Amlodipine Besylate 5 mg BID PO 09/15/25 22:00 09/16/25 22:19 5 MG Hydralazine HCl 50 mg TID PO 09/15/25 22:00 09/17/25 06:04 50 MG Losartan Potassium 100 mg DAILY PO 09/16/25 10:00 09/16/25 10:39 100 MG Sevelamer HCl 800 mg TIDWM PO 09/15/25 18:00 09/17/25 12:25 800 MG Carvedilol 25 mg Q12HR PO 09/15/25 22:00 09/16/25 22:18 25 MG Atorvastatin Calcium 20 mg HS PO 09/15/25 22:00 09/16/25 22:18 20 MG Furosemide 40 mg DAILY IV 09/16/25 10:00 09/16/25 10:37 40 MG Vancomycin HCl 0 ml @ 0 mls/hr PER PHARMACY IV 09/15/25 15:15 Ceftriaxone Sodium 50 ml @ 100 mls/hr DAILY@09 IV 09/16/25 09:00 09/17/25 08:20 100 MLS/HR Albuterol 2.5 mg Q4HWA NEB 09/15/25 18:00 09/17/25 13:21 2.5 MG Ipratropium [place] 0.5 mg Q4HWA NEB 09/15/25 18:00 09/17/25 13:21 0.5 MG Aspirin 81 mg DAILY PO 09/16/25 10:00 09/17/25 08:33 81 MG Acetaminophen 650 mg Q6HP PRN PO 09/15/25 16:30 09/15/25 20:45 650 MG Peritoneal Dialysis Solution 2,000 ml @ 0 mls/hr Q6HR IP 09/15/25 18:00 09/17/25 08:19 0 MLS/HR Mupirocin 1 applic DAILY TOP 09/16/25 10:00 09/17/25 12:28 1 APPLIC Nitroglycerin 0.4 mg Q5MINP PRN SL 09/15/25 17:30 UNV Morphine Sulfate 2 mg Q30M PRN IV 09/15/25 17:30 UNV Enoxaparin Sodium 80 mg DAILY SC 09/16/25 10:00 09/17/25 08:34 80 MG Laboratory Results Laboratory Tests 09/16/25 08:52 09/17/25 05:05 Urinalysis Test 09/15/25 11:07 Urine Color Light-yellow (Yellow) Urine Clarity Clear (Clear) Urine pH 7.5 (5.0-9.0) Urine Specific [place] 1.012 (1.001-1.035) Urine Protein 2+ (Negative) H Urine Ketones Negative (Negative) Urine Blood Trace /uL (Negative) H Urine Nitrite Negative (Negative) Urine Bilirubin Negative (Negative) Urine Urobilinogen Normal mg/dL (Negative) Urine Leukocyte Esterase Negative /uL (Negative) Urine RBC None seen /hpf (0 - 3) Urine Microscopic WBC /HPF (0-3) Urine Squamous Epithelial Cells None seen /hpf (<5) Urine Bacteria None seen /hpf (None Seen) Urine Glucose Trace mg/dL (Normal) Microbiology Microbiology Date/Time Source Procedure Growth Status 09/16/25 16:26 Nose MRSA Screen - Final Complete 09/15/25 07:25 Blood Blood Culture - Final Klebsiella pneumoniae Complete Labs and/or images reviewed: Labs reviewed by me, Image(s) reviewed by me Assessment/Plan Assessment/Plan Jaime Aparicio is a 74-year-old male with past medical history of ESRD on PD and hypertension who presents to the ED with fever, chills, and shortness of breath while finishing up dialysis on his own. Per Thylin at bedside she reports that he does dialysis himself nightly. Patient also reports that he is compliant with his medications. Patient also reports that he ambulates with a cane. Patient denies any recent trauma or injury, recent sick contacts, recent travels, chest pain, abdominal pain, nausea, vomiting, diarrhea, or urinary symptoms. Sepsis with pneumonia Non ST-elevation myocardial infarction, ?Type I Rule out structural heart disease Right bundle branch block Hypertension Dyslipidemia ESRD on peritoneal dialysis Obesity 09/17/2025: pt to continue with ESRD on PD continue with tx of PNA cardiology to evaluate Plan discussed with: Patient Date of Service: Sep 17, 2025 Billing Provider: CARLOS BOX DO Common Visit Codes: [id number] INP/OBS CARE(HIGH) CARLOS BOX DO Sep 17, 2025 14:43
--- NOTE | 2025-09-17 14:57 | DVHPN2 ---
Progress Note - Dictate Date Seen: Sep 17, 2025 Has the PT tested + for MRSA If YES, has PT been informed?: No Medical Necessity Reason Pt with a Central, PICC or Fol: No Subjective Patient was seen and evaluated in follow up. No acute events overnight. No new complaints. Stable on RA. Afebrile. vital signs Vital Sign Date Time Temp Pulse Resp B/P (MAP) Pulse Ox O2 Delivery O2 Flow Rate FiO2 09/17/25 13:27 59 18 100 09/17/25 13:21 Room Air 09/17/25 13:21 0 21 09/17/25 12:43 97.0 111/68 (82) 97.0 Total Intake and Output 09/16/25 09/16/25 09/17/25 15:00 23:00 07:00 Intake Total 50 ml 1700 ml 3400 ml Output Total 100 ml Balance 50 ml 1700 ml 3300 ml medications Current Medications Medications Dose Ordered Sig/Yuri Route Start Time Stop Time Status Last Admin Dose Admin Nitroglycerin 0.4 mg Q5MINP PRN SL 09/15/25 12:30 Morphine Sulfate 2 mg Q30M PRN IV 09/15/25 12:30 Amlodipine Besylate 5 mg BID PO 09/15/25 22:00 09/16/25 22:19 Hydralazine HCl 50 mg TID PO 09/15/25 22:00 09/17/25 06:04 Losartan Potassium 100 mg DAILY PO 09/16/25 10:00 09/16/25 10:39 Sevelamer HCl 800 mg TIDWM PO 09/15/25 18:00 09/17/25 12:25 Carvedilol 25 mg Q12HR PO 09/15/25 22:00 09/16/25 22:18 Atorvastatin Calcium 20 mg HS PO 09/15/25 22:00 09/16/25 22:18 Furosemide 40 mg DAILY IV 09/16/25 10:00 09/16/25 10:37 Vancomycin HCl 0 ml @ 0 mls/hr PER PHARMACY IV 09/15/25 15:15 Ceftriaxone Sodium 50 ml @ 100 mls/hr DAILY@09 IV 09/16/25 09:00 09/17/25 08:20 Albuterol 2.5 mg Q4HWA NEB 09/15/25 18:00 09/17/25 13:21 Ipratropium [place] 0.5 mg Q4HWA NEB 09/15/25 18:00 09/17/25 13:21 Aspirin 81 mg DAILY PO 09/16/25 10:00 09/17/25 08:33 Acetaminophen 650 mg Q6HP PRN PO 09/15/25 16:30 09/15/25 20:45 Peritoneal Dialysis Solution 2,000 ml @ 0 mls/hr Q6HR IP 09/15/25 18:00 09/17/25 08:19 Mupirocin 1 applic DAILY TOP 09/16/25 10:00 09/17/25 12:28 Nitroglycerin 0.4 mg Q5MINP PRN SL 09/15/25 17:30 UNV Morphine Sulfate 2 mg Q30M PRN IV 09/15/25 17:30 UNV Enoxaparin Sodium 80 mg DAILY SC 09/16/25 10:00 09/17/25 08:34 objective Vitals and nursing notes reviewed. General Appearance: Cooperative, In no acute distress. HEENT: Atraumatic, PERRLA, EOMI, Mucous membr. moist/pink Respiratory: On supplemental O2. No resp.distress. Cardiovascular: Regular rate, Normal S1, Normal S2 Abdominal: Normal bowel sounds, Soft, Non-tended, Non-distended. Extremities: No deformity. No clubbing, No cyanosis, No edema Neuro: Alert, Oriented X3, Normal speech, Normal tone, Sensation intact Psych/Mental Status: Mental status NL, Mood NL laboratory and microbiology Laboratory Tests 09/17/25 05:05 09/16/25 08:52 Test 09/16/25 08:52 Range/Units Serum Glucose 111 H 74-106 mg/dL Problem List Fever NSTEMI likely type 2 Leukocytosis likely due to pneumonia ESRD on peritoneal dialysis History of hypertension Assessment/Plan Agree with current supportive medical care. Cardiology consulted. PD treatments with 2.5% dialysate. IV antibiotics with Vancomycin and Ceftriaxone. MedNeb breathing treatments. Pain management prn. Home medications as ordered. DVT / GI prophylaxis. Additional plan as per the hospital course. Plan discussed with: Patient, Other (RN) DIANN LANIER DO Sep 17, 2025 14:57
--- NOTE | 2025-09-17 14:57 | DVHINCON2 ---
Date of service: Sep 15, 2025 Referring Physician Tj Fisher MD Reason for Consultation ESRD on PD History of Present Illness Jaime Aparicio is a 74-year-old M with a Past Medical History pertinent for ESRD on PD and Hypertension who presented to the hospital with complaint of fever, chills and shortness of breath while finishing up dialysis at home. Patient reports compliance with dialysis treatments and that he is compliant with his medications. Denies any recent trauma or injury, recent sick contacts, recent travels, chest pain, abdominal pain, nausea, vomiting, diarrhea, or urinary symptoms. Initial Chest x-ray reported right lower lobe airspace disease likely representing pneumonia. Labs were remarkable for elevated WBC 16.1. K is wnl. Influenza/Covid tests negative. Present also presented with trending troponin levels with latest in the 1,200s ng/L.Multiple 12 lead electrocardiograms performed revealing a sinus rhythm with an associated right bundle branch block. Allergies: Coded Allergies: NO KNOWN ALLERGIES (Unverified , 09/15/25) Home Meds Reported Medications Sevelamer Carbonate (Renvela) 800 Mg Tab, 2 TAB PO TID, #540 TAB 3 Refills 09/16/25 B-Complex W/ C & Folic Acid (Nat-Zen) Tab, 1 TAB PO DAILY, TAB 09/16/25 Famotidine (PEPCID TABLET) 20 Mg Tb, 10 MG PO DAILY, TAB 09/16/25 Sodium Zirconium Cyclosilicate (Lokelma) 10 Gm [place], 10 GM PO DAILY, PACK 09/16/25 Lactulose (Lactulose) 10 Gm/15 Ml [place], 10 GM PO TID, ML 09/16/25 Furosemide (Furosemide) 20 Mg Tab, 40 MG PO BIDD for 30 Days, MG 09/16/25 Calcitriol (Calcitriol) 0.25 Mcg Cap, 1 CAP PO DAILY, #30 CAP 5 Refills 09/16/25 Aspirin (Aspir-Low) 81 Mg Tab, 81 MG PO DAILY for 30 Days, MG 09/16/25 Sevelamer Carbonate (Sevelamer Carbonate) 800 Mg Tab, 1 TAB PO TID 09/15/25 Simvastatin (Simvastatin) 20 Mg Tab, 1 TAB PO 09/15/25 Carvedilol (Carvedilol) 25 Mg Tab, TAB PO 09/15/25 Hydralazine Hcl (Hydralazine Hcl) 50 Mg Tab, 1 TAB PO TID 09/15/25 Losartan Potassium (Losartan Potassium) 100 Mg Tab, 1 TAB PO DAILY 09/15/25 Amlodipine Besylate (Amlodipine Besylate) 5 Mg Tab, 1 TAB PO BID 09/15/25 Current Medications Current Medications Medications (Trade) Dose Ordered Sig/Yuri Route PRN Reason Start Time Stop Time Status Last Admin Samuel Lovingi (Florastor) 250 mg DAILY PO 09/18/25 10:00 09/18/25 07:40 Peritoneal Dialysis Solution 2,000 ml Q6H IP 09/18/25 13:30 09/18/25 13:31 Family History: Patient reports no known family medical history. Review of Systems Constitutional: Yes: Fever, Chills Respiratory: Shortness of breath All other systems reviewed and negative unless otherwise noted in HPI. H&P Exam Vital Signs/I&O Vital Sign Date Time Temp Pulse Resp B/P (MAP) Pulse Ox O2 Delivery O2 Flow Rate FiO2 09/18/25 18:35 60 14 99 09/18/25 18:29 Room Air* 0 21 09/18/25 16:38 98.3 126/76 (93) 98.3 Intake and Output 09/17/25 09/18/25 19:00 07:00 Intake Total 6875 ml 400 ml Output Total 2125 ml 700 ml Balance 4750 ml -300 ml Intake Oral 725 ml 400 ml IV Total 3150 ml Intraperitoneal 1500 ml Other 1500 ml Output Urine Total 325 ml 700 ml Other 1800 ml Physical Exam Vitals and nursing notes reviewed. General Appearance: Cooperative, mild distress HEENT: Atraumatic, PERRLA, EOMI, Mucous membr. moist/pink Respiratory: Other (Increased work of breathing) Cardiovascular: Regular rate, Normal S1, Normal S2 Abdominal: Normal bowel sounds, Soft Extremities: No clubbing, No cyanosis Neuro: Alert, Oriented X3, Normal speech, Normal tone, Sensation intact Psych/Mental Status: Mental status NL, Mood NL Labs/Diagnostic Data Labs/Diagnostic Data Laboratory Tests Test 09/18/25 10:36 09/17/25 05:05 09/16/25 11:20 09/16/25 08:52 Range/Units White Blood Count 6.1 # 9.9 # 16.1 H 4.4-10.8 10^3/uL Red Blood Count 3.36 L 3.56 L 3.65 L 4.5-5.90 10^6/uL Hemoglobin 10.3 L 11.0 L 11.1 L 13.5-17.5 g/dL Hematocrit 31.1 L 33.0 L 33.8 L 41.0-53.0 % Mean Corpuscular Volume 92.6 92.8 92.6 80.0-100.0 fL Mean Corpuscular Hemoglobin 30.6 31.0 30.4 28.0-32.0 pg Mean Corpuscular Hemoglobin Concent 33.1 33.4 32.8 32.0-36.0 g/dL Red Cell Distribution Width 13.8 13.6 13.8 11.8-14.3 % Platelet Count 124 L 117 L 126 L 140-450 10^3/uL Mean Platelet Volume 8.4 8.2 7.5 6.9-10.8 fL Neutrophils (%) (Auto) 79.5 88.2 H 37.0-80.0 % Lymphocytes (%) (Auto) 5.9 L 3.9 L 10.0-50.0 % Monocytes (%) (Auto) 10.3 6.6 0.0-12.0 % Basophils (%) (Auto) 0.4 0.3 0.0-2.0 % Neutrophils # (Auto) 7.9 14.2 H 1.6-8.6 10 ^3/uL Lymphocytes # (Auto) 0.6 0.6 0.4-5.4 10 ^3/uL Monocytes # (Auto) 1.0 1.1 0-1.3 10 ^3/uL Differential Total Cells Counted 100.0 100 Neutrophils % (Manual) 60 37.0-80.0 Band Neutrophils % (Manual) 5 Lymphocytes % (Manual) 11 10.0-50.0 Monocytes % (Manual) 20 H 0-12 Eosinophils % (Manual) 4 0-7 Basophils % (Manual) 0 0.0-2.0 Metamyelocytes % (manual) 0 Myelocytes % (Manual) 0 Promyelocytes % (Manual) 0 Blast Cells % (Manual) 0 Reactive Lymphocytes 0 Platelet Estimate Decreased Creatinine 6.77 H 7.19 H 6.82 H 0.700-1.30 mg/dL Glomerular Filtration Rate Calc 8 7 8 >90 mL/min Random Vancomycin Level 17.4 H 15.7 H 5-10 ug/mL Eosinophils (%) (Auto) 3.9 1.0 0.0-7.0 % Eosinophils # (Auto) 0.4 0.2 0-0.8 10 ^3/uL Basophils # (Auto) 0 0 0-0.2 10 ^3/uL Nucleated Red Blood Cells 0.0 0.0 % Prothrombin Time 11.3 9.3-11.8 sec Prothrombin Time INR 1.07 0.9-1.15 Activated Partial Thromboplast Time 56.0 H 24.5-34.5 SEC Sodium Level 137 136-145 mmol/L Potassium Level 4.2 3.5-5.1 mmol/L Chloride Level 103 98-107 mmol/L Carbon Dioxide Level 22 20-31 mmol/L Anion Gap 12 5-15 Blood Urea Nitrogen 38 H 9-23 mg/dL BUN/Creatinine Ratio 5.6 L 10.0-20.0 Serum Glucose 111 H 74-106 mg/dL Lactic Acid Level 1.2 0.4-2.0 mmol/L Calcium Level 7.4 L 8.7-10.4 mg/dL Total Bilirubin 0.3 0.2-1.0 mg/dL Aspartate Amino Transferase (AST) 33 13-40 U/L Alanine Aminotransferase (ALT) 27 7-40 U/L Alkaline Phosphatase 73 46-116 U/L Total Protein 6.2 5.7-8.2 g/dL Albumin 3.3 3.2-4.8 g/dL Test 09/16/25 02:55 09/15/25 21:48 09/15/25 16:07 09/15/25 14:51 Range/Units White Blood Count 19.4 H 4.4-10.8 10^3/uL Red Blood Count 3.52 L 4.5-5.90 10^6/uL Hemoglobin 10.8 L 13.5-17.5 g/dL Hematocrit 32.2 #L 41.0-53.0 % Mean Corpuscular Volume 91.6 80.0-100.0 fL Mean Corpuscular Hemoglobin 30.7 28.0-32.0 pg Mean Corpuscular Hemoglobin Concent 33.5 32.0-36.0 g/dL Red Cell Distribution Width 14.1 11.8-14.3 % Platelet Count 125 L 140-450 10^3/uL Mean Platelet Volume 7.6 6.9-10.8 fL Neutrophils (%) (Auto) 91.3 H 37.0-80.0 % Lymphocytes (%) (Auto) 2.9 L 10.0-50.0 % Monocytes (%) (Auto) 5.3 0.0-12.0 % Eosinophils (%) (Auto) 0.2 0.0-7.0 % Basophils (%) (Auto) 0.3 0.0-2.0 % Neutrophils # (Auto) 17.7 H 1.6-8.6 10 ^3/uL Lymphocytes # (Auto) 0.6 0.4-5.4 10 ^3/uL Monocytes # (Auto) 1.0 0-1.3 10 ^3/uL Eosinophils # (Auto) 0 0-0.8 10 ^3/uL Basophils # (Auto) 0.1 0-0.2 10 ^3/uL Nucleated Red Blood Cells 0.0 % Prothrombin Time 11.9 H 11.4 9.3-11.8 sec Prothrombin Time INR 1.14 1.08 0.9-1.15 Activated Partial Thromboplast Time 103.6 *H 46.7 H 24.5-34.5 SEC Troponin I High Sensitivity 3972 *H 4883 *H 4099 *H 3527 *H </=54 ng/L Random Vancomycin Level 11.8 H 5-10 ug/mL Test 09/15/25 11:07 09/15/25 10:39 09/15/25 10:35 09/15/25 09:51 Range/Units Urine Color Light-yellow Yellow Urine Clarity Clear Clear Urine pH 7.5 5.0-9.0 Urine Specific [place] 1.012 1.001-1.035 Urine Protein 2+ H Negative Urine Ketones Negative Negative Urine Blood Trace H Negative /uL Urine Nitrite Negative Negative Urine Bilirubin Negative Negative Urine Urobilinogen Normal Negative mg/dL Urine Leukocyte Esterase Negative Negative /uL Urine RBC None seen 0 - 3 /hpf Urine Microscopic WBC 0-3 /HPF Urine Squamous Epithelial Cells None seen <5 /hpf Urine Bacteria None seen None Seen /hpf Urine Glucose Trace Normal mg/dL Troponin I High Sensitivity 2551 *H </=54 ng/L Influenza Type A Antigen Negative Negative Influenza Type B Antigen Negative Negative Lactic Acid Level 1.4 0.4-2.0 mmol/L Test 09/15/25 08:50 09/15/25 08:37 09/15/25 07:04 Range/Units SARS-CoV-2 Antigen (Rapid) Negative NEGATIVE Magnesium Level 1.9 1.6-2.6 mg/dL Troponin I High Sensitivity 1277 *H 554 *H </=54 ng/L Triglycerides Level 74 < 150 mg/dL Cholesterol Level 131 < 200 mg/dL LDL Cholesterol 67 < 100 mg/dL HDL Cholesterol 50 40-59 mg/dL Thyroid Stimulating Hormone (TSH) 1.14 0.55-4.78 uIU/mL White Blood Count 16.1 H 4.4-10.8 10^3/uL Red Blood Count 4.03 L 4.5-5.90 10^6/uL Hemoglobin 12.3 L 13.5-17.5 g/dL Hematocrit 36.6 L 41.0-53.0 % Mean Corpuscular Volume 90.9 80.0-100.0 fL Mean Corpuscular Hemoglobin 30.5 28.0-32.0 pg Mean Corpuscular Hemoglobin Concent 33.6 32.0-36.0 g/dL Red Cell Distribution Width 13.6 11.8-14.3 % Platelet Count 179 140-450 10^3/uL Mean Platelet Volume 7.4 6.9-10.8 fL Neutrophils (%) (Auto) 95.6 H 37.0-80.0 % Lymphocytes (%) (Auto) 2.1 L 10.0-50.0 % Monocytes (%) (Auto) 1.0 0.0-12.0 % Eosinophils (%) (Auto) 0.8 0.0-7.0 % Basophils (%) (Auto) 0.5 0.0-2.0 % Neutrophils # (Auto) 15.4 H 1.6-8.6 10 ^3/uL Lymphocytes # (Auto) 0.3 L 0.4-5.4 10 ^3/uL Monocytes # (Auto) 0.2 0-1.3 10 ^3/uL Eosinophils # (Auto) 0.1 0-0.8 10 ^3/uL Basophils # (Auto) 0.1 0-0.2 10 ^3/uL Nucleated Red Blood Cells 0.0 % Sodium Level 138 136-145 mmol/L Potassium Level 4.6 3.5-5.1 mmol/L Chloride Level 104 98-107 mmol/L Carbon Dioxide Level 21 20-31 mmol/L Anion Gap 13 5-15 Blood Urea Nitrogen 46 H 9-23 mg/dL Creatinine 7.10 H 0.700-1.30 mg/dL Glomerular Filtration Rate Calc 8 >90 mL/min BUN/Creatinine Ratio 6.5 L 10.0-20.0 Serum Glucose 122 H 74-106 mg/dL Hemoglobin A1c 5.4 <5.7 % A1C Lactic Acid Level 2.3 *H 0.4-2.0 mmol/L Calcium Level 7.9 L 8.7-10.4 mg/dL B-Type Natriuretic Peptide 222.36 0-100 pg/mL Microbiology Date/Time Source Procedure Growth Status 09/16/25 16:26 Nose MRSA Screen - Final Complete 09/15/25 07:25 Blood Blood Culture - Final Klebsiella pneumoniae Complete Assessment Fever NSTEMI likely type 2 Leukocytosis likely due to pneumonia Lactic acidosis rule out sepsis versus SIRS History of ESRD on peritoneal dialysis History of hypertension Plan/Recommendation Agreement with your ongoing assessment and plan of care. Resume PD treatments with 2.5% dialysate. Antipyretics. Cooling measures. IV antibiotics with Vancomycin and Ceftriaxone. F/u cultures. MedNeb breathing treatments. Pain management prn. Home medications reconciled and resumed as ordered. DVT prophylaxis with Lovenox. GI prophylaxis-PPIs. Additional plan as per the hospital course. Plan discussed with: Patient, Other (RN) DIANN LANIER DO Sep 17, 2025 14:56
--- NOTE | 2025-09-17 14:57 | DVHPN2 ---
Progress Note - Dictate Date Seen: Sep 16, 2025 Has the PT tested + for MRSA If YES, has PT been informed?: No Medical Necessity Reason Pt with a Central, PICC or Fol: No Subjective Patient was seen and evaluated in follow up. No acute events overnight. Patient is stable on 2L NC. Patient's will be assisting with dialysis treatments as she does at home. Prelim blood cultures are positive for gram negative rods; Klebsiella pneumoniae. vital signs Vital Sign Date Time Temp Pulse Resp B/P (MAP) Pulse Ox O2 Delivery O2 Flow Rate FiO2 09/17/25 13:27 59 18 100 09/17/25 13:21 Room Air 09/17/25 13:21 0 21 09/17/25 12:43 97.0 111/68 (82) 97.0 Total Intake and Output 09/16/25 09/16/25 09/17/25 15:00 23:00 07:00 Intake Total 50 ml 1700 ml 3400 ml Output Total 100 ml Balance 50 ml 1700 ml 3300 ml medications Current Medications Medications Dose Ordered Sig/Yuri Route Start Time Stop Time Status Last Admin Dose Admin Nitroglycerin 0.4 mg Q5MINP PRN SL 09/15/25 12:30 Morphine Sulfate 2 mg Q30M PRN IV 09/15/25 12:30 Amlodipine Besylate 5 mg BID PO 09/15/25 22:00 09/16/25 22:19 Hydralazine HCl 50 mg TID PO 09/15/25 22:00 09/17/25 06:04 Losartan Potassium 100 mg DAILY PO 09/16/25 10:00 09/16/25 10:39 Sevelamer HCl 800 mg TIDWM PO 09/15/25 18:00 09/17/25 12:25 Carvedilol 25 mg Q12HR PO 09/15/25 22:00 09/16/25 22:18 Atorvastatin Calcium 20 mg HS PO 09/15/25 22:00 09/16/25 22:18 Furosemide 40 mg DAILY IV 09/16/25 10:00 09/16/25 10:37 Vancomycin HCl 0 ml @ 0 mls/hr PER PHARMACY IV 09/15/25 15:15 Ceftriaxone Sodium 50 ml @ 100 mls/hr DAILY@09 IV 09/16/25 09:00 09/17/25 08:20 Albuterol 2.5 mg Q4HWA [facility] 09/15/25 18:00 09/17/25 13:21 Ipratropium [place] 0.5 mg Q4HWA [facility] 09/15/25 18:00 09/17/25 13:21 Aspirin 81 mg DAILY PO 09/16/25 10:00 09/17/25 08:33 Acetaminophen 650 mg Q6HP PRN PO 09/15/25 16:30 09/15/25 20:45 Peritoneal Dialysis Solution 2,000 ml @ 0 mls/hr Q6HR IP 09/15/25 18:00 09/17/25 08:19 Mupirocin 1 applic DAILY TOP 09/16/25 10:00 09/17/25 12:28 Nitroglycerin 0.4 mg Q5MINP PRN SL 09/15/25 17:30 UNV Morphine Sulfate 2 mg Q30M PRN IV 09/15/25 17:30 UNV Enoxaparin Sodium 80 mg DAILY SC 09/16/25 10:00 09/17/25 08:34 objective Vitals and nursing notes reviewed. General Appearance: Cooperative, In no acute distress. HEENT: Atraumatic, PERRLA, EOMI, Mucous membr. moist/pink Respiratory: On supplemental O2. No resp.distress. Cardiovascular: Regular rate, Normal S1, Normal S2 Abdominal: Normal bowel sounds, Soft, Non-tended, Non-distended. Extremities: No deformity. No clubbing, No cyanosis, No edema Neuro: Alert, Oriented X3, Normal speech, Normal tone, Sensation intact Psych/Mental Status: Mental status NL, Mood NL laboratory and microbiology Laboratory Tests 09/17/25 05:05 09/16/25 08:52 Test 09/16/25 08:52 Range/Units Serum Glucose 111 H 74-106 mg/dL Problem List Fever NSTEMI likely type 2 Leukocytosis likely due to pneumonia Lactic acidosis rule out sepsis versus SIRS History of ESRD on peritoneal dialysis History of hypertension Assessment/Plan Agree with current supportive medical care. Cardiology consulted. PD treatments with 2.5% dialysate. Antipyretics prn. IV antibiotics with Vancomycin and Ceftriaxone. F/u blood cultures. MedNeb breathing treatments. Pain management prn. Home medications as ordered. DVT prophylaxis with Lovenox. GI prophylaxis-PPIs. Additional plan as per the hospital course. Plan discussed with: Patient, Other (RN) LANIER,DIANN H DO Sep 17, 2025 14:57
[2025-09-17] MEDS: LACTULOSE 20Gm/30ML SOLN PO PRN (16:11)
[2025-09-17] MEDS: DOCUSATE SOD 100 MG CAP PO PRN (16:14)
[2025-09-17] MEDS: VANCOMYCIN 500mg/100mL 100 ML IV ONE (16:15)
[2025-09-17] MEDS ORDERED: LACTULOSE 20Gm/30ML SOLN PO SCH (18:00)
--- NOTE | 2025-09-17 18:41 | ECG ---
[facility] Test Date: 2025-09-16 Test Time: 09:18:49 Pat Name: SUSANA GARDUNO Department: ED Room: 0207T A Gender: M [employer]: jennifer : 1950 Requested By: CHIO RUSH Order Number: [id number] Reading MD: Chio Rush Measurements Intervals [place] Rate: 68 P: 69 [place]: 186 QRS: 31 QRSD: 144 T: 26 QT: 450 QTc: 479 Interpretive Statements Sinus rhythm Right bundle branch block Electronically Signed On 09-20-2025 17:41:59 PST by Chio Rush Please click the below link to view image of tracing.
[2025-09-17] MEDS: PERITONEAL DIALYSIS Soln 1.5% 2000ml IP SCH (23:00)
[2025-09-18] VITALS (20 sets, daily range): BP systolic 114–152; BP diastolic 66–78; PULSE 56–77; RESP 14–19; TEMP 97.4–98.7; O2SAT 95–100
[2025-09-18] MEDS: FLORASTOR (S. BOULARDII) 250 MG CAP PO SCH (07:40)
[2025-09-18 11:41] LABS: Hematocrit 31.1 % (41.0-53.0); Hemoglobin 10.3 g/dL (13.5-17.5); Mean Corpuscular Hemoglobin 30.6 pg (28.0-32.0); Mean Corpuscular Volume 92.6 fL (80.0-100.0)
[2025-09-18 12:56] LABS: Total Cells Counted 100.0 (100)
[2025-09-18] MEDS: PERITONEAL DIALYSIS 2.5% IP SCH (13:31)
[2025-09-18] MEDS: VANCOMYCIN 500mg/100mL 100 ML IV ONE (18:29)
--- NOTE | 2025-09-18 20:28 | DVHPN2 ---
Progress Note - Dictate Date Seen: Sep 18, 2025 Has the PT tested + for MRSA If YES, has PT been informed?: No Medical Necessity Reason Pt with a Central, PICC or Fol: No Subjective Patient was seen and evaluated in follow up. No acute events overnight. No new complaints. Patient remains stable on RA. Using 1.5% dialysate for now as pharmacy does not have 2.5%. vital signs Vital Sign Date Time Temp Pulse Resp B/P (MAP) Pulse Ox O2 Delivery O2 Flow Rate FiO2 09/18/25 18:35 60 14 99 09/18/25 18:29 Room Air* 0 21 09/18/25 16:38 98.3 126/76 (93) 98.3 Total Intake and Output 09/17/25 09/17/25 09/18/25 15:00 23:00 07:00 Intake Total 3050 ml 3825 ml 400 ml Output Total 1800 ml 325 ml 700 ml Balance 1250 ml 3500 ml -300 ml medications Current Medications Medications Dose Ordered Sig/Yuri Route Start Time Stop Time Status Last Admin Dose Admin Nitroglycerin 0.4 mg Q5MINP PRN SL 09/15/25 12:30 Morphine Sulfate 2 mg Q30M PRN IV 09/15/25 12:30 Amlodipine Besylate 5 mg BID PO 09/15/25 22:00 09/16/25 22:19 5 MG Hydralazine HCl 50 mg TID PO 09/15/25 22:00 09/18/25 05:50 50 MG Losartan Potassium 100 mg DAILY PO 09/16/25 10:00 09/16/25 10:39 100 MG Sevelamer HCl 800 mg TIDWM PO 09/15/25 18:00 09/18/25 18:28 800 MG Carvedilol 25 mg Q12HR PO 09/15/25 22:00 09/16/25 22:18 25 MG Atorvastatin Calcium 20 mg HS PO 09/15/25 22:00 09/17/25 21:36 20 MG Furosemide 40 mg DAILY IV 09/16/25 10:00 09/16/25 10:37 40 MG Vancomycin HCl 0 ml @ 0 mls/hr PER PHARMACY IV 09/15/25 15:15 Ceftriaxone Sodium 50 ml @ 100 mls/hr DAILY@09 IV 09/16/25 09:00 09/18/25 07:36 100 MLS/HR Albuterol 2.5 mg Q4HWA NEB 09/15/25 18:00 09/18/25 18:29 2.5 MG Ipratropium [place] 0.5 mg Q4HWA NEB 09/15/25 18:00 09/18/25 18:29 0.5 MG Aspirin 81 mg DAILY PO 09/16/25 10:00 09/18/25 07:37 81 MG Acetaminophen 650 mg Q6HP PRN PO 09/15/25 16:30 09/15/25 20:45 650 MG Mupirocin 1 applic DAILY TOP 09/16/25 10:00 09/18/25 13:00 1 APPLIC Nitroglycerin 0.4 mg Q5MINP PRN SL 09/15/25 17:30 UNV Morphine Sulfate 2 mg Q30M PRN IV 09/15/25 17:30 UNV Enoxaparin Sodium 80 mg DAILY SC 09/16/25 10:00 09/17/25 08:34 80 MG Docusate Sodium 100 mg BIDPRN PRN PO 09/17/25 15:45 09/17/25 16:14 100 MG Saccharomyces Boulardii 250 mg DAILY PO 09/18/25 10:00 09/18/25 07:40 250 MG Peritoneal Dialysis Solution 2,000 ml Q6HR IP 09/17/25 18:00 Hold 09/18/25 05:51 2,000 ML Lactulose 15 ml Q6HP PRN PO 09/17/25 16:15 Peritoneal Dialysis Solution 2,000 ml Q6H IP 09/18/25 13:30 09/18/25 13:31 2,000 ML objective Vitals and nursing notes reviewed. General Appearance: Cooperative, In no acute distress. HEENT: Atraumatic, PERRLA, EOMI, Mucous membr. moist/pink Respiratory: Normal effort. Cardiovascular: Regular rate, Normal S1, Normal S2 Abdominal: Normal bowel sounds, Soft, Non-tended, Non-distended. Extremities: No deformity. No clubbing, No cyanosis, No edema Neuro: Alert, Oriented X3, Normal speech, Normal tone, Sensation intact Psych/Mental Status: Mental status NL, Mood NL laboratory and microbiology Laboratory Tests 09/18/25 10:36 09/16/25 08:52 Test 09/16/25 08:52 Range/Units Serum Glucose 111 H 74-106 mg/dL Problem List Fever NSTEMI likely type 2 Leukocytosis likely due to pneumonia ESRD on peritoneal dialysis History of hypertension Assessment/Plan Agree with current supportive medical care. PD treatments with 1.5% dialysate. IV antibiotics with Vancomycin and Ceftriaxone. MedNeb breathing treatments. Pain management prn. Home medications as ordered. DVT / GI prophylaxis. Additional plan as per the hospital course. Plan discussed with: Patient, Other (RN) DIANN LANIER DO Sep 18, 2025 20:28
--- NOTE | 2025-09-18 23:04 | DVHPN2 ---
Reviewed: Care Plan, H&P, Labs, Medications Changes from previous H/P or p: No Changes General: Per HPI Respiratory: Shortness of breath Objective Vitals Vital Signs Date Time Temp Pulse Resp B/P (MAP) Pulse Ox O2 Delivery O2 Flow Rate FiO2 09/18/25 22:34 127/78 09/18/25 22:13 58 14 99 09/18/25 22:07 Room Air* 0 21 09/18/25 21:00 98.3 98.3 Intake/Output Intake and Output 09/18/25 07:00 Intake Total 7275 ml Output Total 2825 ml Balance 4450 ml Intake Oral 1125 ml IV Total 3150 ml Intraperitoneal 1500 ml Other 1500 ml Output Urine Total 1025 ml Other 1800 ml General Appearance: Alert, Oriented X3, Cooperative Cardiovascular: Regular rate, Normal S1 Abdomen: Normal bowel sounds Neuro: Normal gait, Normal speech Medications Current Medications Medications Dose Ordered Sig/Yuri Route Start Time Stop Time Status Last Admin Dose Admin Nitroglycerin 0.4 mg Q5MINP PRN SL 09/15/25 12:30 Morphine Sulfate 2 mg Q30M PRN IV 09/15/25 12:30 Amlodipine Besylate 5 mg BID PO 09/15/25 22:00 09/18/25 22:33 5 MG Hydralazine HCl 50 mg TID PO 09/15/25 22:00 09/18/25 22:34 50 MG Losartan Potassium 100 mg DAILY PO 09/16/25 10:00 09/16/25 10:39 100 MG Sevelamer HCl 800 mg TIDWM PO 09/15/25 18:00 09/18/25 18:28 800 MG Carvedilol 25 mg Q12HR PO 09/15/25 22:00 09/18/25 21:27 25 MG Atorvastatin Calcium 20 mg HS PO 09/15/25 22:00 09/18/25 21:25 20 MG Furosemide 40 mg DAILY IV 09/16/25 10:00 09/16/25 10:37 40 MG Vancomycin HCl 0 ml @ 0 mls/hr PER PHARMACY IV 09/15/25 15:15 Ceftriaxone Sodium 50 ml @ 100 mls/hr DAILY@09 IV 09/16/25 09:00 09/18/25 07:36 100 MLS/HR Albuterol 2.5 mg Q4HWA NEB 09/15/25 18:00 09/18/25 22:07 2.5 MG Ipratropium [place] 0.5 mg Q4HWA NEB 09/15/25 18:00 09/18/25 22:07 0.5 MG Aspirin 81 mg DAILY PO 09/16/25 10:00 09/18/25 07:37 81 MG Acetaminophen 650 mg Q6HP PRN PO 09/15/25 16:30 09/15/25 20:45 650 MG Mupirocin 1 applic DAILY TOP 09/16/25 10:00 09/18/25 13:00 1 APPLIC Nitroglycerin 0.4 mg Q5MINP PRN SL 09/15/25 17:30 UNV Morphine Sulfate 2 mg Q30M PRN IV 09/15/25 17:30 UNV Enoxaparin Sodium 80 mg DAILY SC 09/16/25 10:00 09/17/25 08:34 80 MG Docusate Sodium 100 mg BIDPRN PRN PO 09/17/25 15:45 09/17/25 16:14 100 MG Saccharomyces Boulardii 250 mg DAILY PO 09/18/25 10:00 09/18/25 07:40 250 MG Peritoneal Dialysis Solution 2,000 ml Q6HR IP 09/17/25 18:00 Hold 09/18/25 05:51 2,000 ML Lactulose 15 ml Q6HP PRN PO 09/17/25 16:15 Peritoneal Dialysis Solution 2,000 ml Q6H IP 09/18/25 13:30 09/18/25 21:02 2,000 ML Laboratory Results Laboratory Tests 09/16/25 08:52 09/18/25 10:36 Urinalysis Test 09/15/25 11:07 Urine Color Light-yellow (Yellow) Urine Clarity Clear (Clear) Urine pH 7.5 (5.0-9.0) Urine Specific [place] 1.012 (1.001-1.035) Urine Protein 2+ (Negative) H Urine Ketones Negative (Negative) Urine Blood Trace /uL (Negative) H Urine Nitrite Negative (Negative) Urine Bilirubin Negative (Negative) Urine Urobilinogen Normal mg/dL (Negative) Urine Leukocyte Esterase Negative /uL (Negative) Urine RBC None seen /hpf (0 - 3) Urine Microscopic WBC /HPF (0-3) Urine Squamous Epithelial Cells None seen /hpf (<5) Urine Bacteria None seen /hpf (None Seen) Urine Glucose Trace mg/dL (Normal) Microbiology Microbiology Date/Time Source Procedure Growth Status 09/16/25 16:26 Nose MRSA Screen - Final Complete 09/15/25 07:25 Blood Blood Culture - Final Klebsiella pneumoniae Complete Labs and/or images reviewed: Labs reviewed by me, Image(s) reviewed by me Assessment/Plan Assessment/Plan Jaime Aparicio is a 74-year-old male with past medical history of ESRD on PD and hypertension who presents to the ED with fever, chills, and shortness of breath while finishing up dialysis on his own. Per Thylin at bedside she reports that he does dialysis himself nightly. Patient also reports that he is compliant with his medications. Patient also reports that he ambulates with a cane. Patient denies any recent trauma or injury, recent sick contacts, recent travels, chest pain, abdominal pain, nausea, vomiting, diarrhea, or urinary symptoms. Sepsis with pneumonia Non ST-elevation myocardial infarction, ?Type I Rule out structural heart disease Right bundle branch block Hypertension Dyslipidemia ESRD on peritoneal dialysis Obesity 09/16/2025: continue with IV Abx, still has significant coughing Plan discussed with: Patient My Orders Orders - CARLOS BOX DO Procedure Category Date Status Time Peritoneal Dialysis PHA 09/18/25 In Process 2.5% Soln 13:30 Date of Service: Sep 16, 2025 Billing Provider: CARLOS BOX DO Common Visit Codes: [id number] INP/OBS CARE(HIGH) CARLOS BOX DO Sep 18, 2025 23:04
--- NOTE | 2025-09-18 23:11 | DVHPN2 ---
Reviewed: Care Plan, H&P, Labs, Medications Changes from previous H/P or p: No Changes General: Per HPI Respiratory: Shortness of breath Objective Vitals Vital Signs Date Time Temp Pulse Resp B/P (MAP) Pulse Ox O2 Delivery O2 Flow Rate FiO2 09/18/25 22:34 127/78 09/18/25 22:13 58 14 99 09/18/25 22:07 Room Air* 0 21 09/18/25 21:00 98.3 98.3 Intake/Output Intake and Output 09/18/25 07:00 Intake Total 7275 ml Output Total 2825 ml Balance 4450 ml Intake Oral 1125 ml IV Total 3150 ml Intraperitoneal 1500 ml Other 1500 ml Output Urine Total 1025 ml Other 1800 ml General Appearance: Alert, Oriented X3, Cooperative Cardiovascular: Regular rate, Normal S1 Abdomen: Normal bowel sounds Neuro: Normal gait, Normal speech Medications Current Medications Medications Dose Ordered Sig/Yuri Route Start Time Stop Time Status Last Admin Dose Admin Nitroglycerin 0.4 mg Q5MINP PRN SL 09/15/25 12:30 Morphine Sulfate 2 mg Q30M PRN IV 09/15/25 12:30 Amlodipine Besylate 5 mg BID PO 09/15/25 22:00 09/18/25 22:33 5 MG Hydralazine HCl 50 mg TID PO 09/15/25 22:00 09/18/25 22:34 50 MG Losartan Potassium 100 mg DAILY PO 09/16/25 10:00 09/16/25 10:39 100 MG Sevelamer HCl 800 mg TIDWM PO 09/15/25 18:00 09/18/25 18:28 800 MG Carvedilol 25 mg Q12HR PO 09/15/25 22:00 09/18/25 21:27 25 MG Atorvastatin Calcium 20 mg HS PO 09/15/25 22:00 09/18/25 21:25 20 MG Furosemide 40 mg DAILY IV 09/16/25 10:00 09/16/25 10:37 40 MG Vancomycin HCl 0 ml @ 0 mls/hr PER PHARMACY IV 09/15/25 15:15 Ceftriaxone Sodium 50 ml @ 100 mls/hr DAILY@09 IV 09/16/25 09:00 09/18/25 07:36 100 MLS/HR Albuterol 2.5 mg Q4HWA NEB 09/15/25 18:00 09/18/25 22:07 2.5 MG Ipratropium [place] 0.5 mg Q4HWA NEB 09/15/25 18:00 09/18/25 22:07 0.5 MG Aspirin 81 mg DAILY PO 09/16/25 10:00 09/18/25 07:37 81 MG Acetaminophen 650 mg Q6HP PRN PO 09/15/25 16:30 09/15/25 20:45 650 MG Mupirocin 1 applic DAILY TOP 09/16/25 10:00 09/18/25 13:00 1 APPLIC Nitroglycerin 0.4 mg Q5MINP PRN SL 09/15/25 17:30 UNV Morphine Sulfate 2 mg Q30M PRN IV 09/15/25 17:30 UNV Enoxaparin Sodium 80 mg DAILY SC 09/16/25 10:00 09/17/25 08:34 80 MG Docusate Sodium 100 mg BIDPRN PRN PO 09/17/25 15:45 09/17/25 16:14 100 MG Saccharomyces Boulardii 250 mg DAILY PO 09/18/25 10:00 09/18/25 07:40 250 MG Peritoneal Dialysis Solution 2,000 ml Q6HR IP 09/17/25 18:00 Hold 09/18/25 05:51 2,000 ML Lactulose 15 ml Q6HP PRN PO 09/17/25 16:15 Peritoneal Dialysis Solution 2,000 ml Q6H IP 09/18/25 13:30 09/18/25 21:02 2,000 ML Laboratory Results Laboratory Tests 09/16/25 08:52 09/18/25 10:36 Urinalysis Test 09/15/25 11:07 Urine Color Light-yellow (Yellow) Urine Clarity Clear (Clear) Urine pH 7.5 (5.0-9.0) Urine Specific [place] 1.012 (1.001-1.035) Urine Protein 2+ (Negative) H Urine Ketones Negative (Negative) Urine Blood Trace /uL (Negative) H Urine Nitrite Negative (Negative) Urine Bilirubin Negative (Negative) Urine Urobilinogen Normal mg/dL (Negative) Urine Leukocyte Esterase Negative /uL (Negative) Urine RBC None seen /hpf (0 - 3) Urine Microscopic WBC /HPF (0-3) Urine Squamous Epithelial Cells None seen /hpf (<5) Urine Bacteria None seen /hpf (None Seen) Urine Glucose Trace mg/dL (Normal) Microbiology Microbiology Date/Time Source Procedure Growth Status 09/16/25 16:26 Nose MRSA Screen - Final Complete 09/15/25 07:25 Blood Blood Culture - Final Klebsiella pneumoniae Complete Assessment/Plan Assessment/Plan Jaime Aparicio is a 74-year-old male with past medical history of ESRD on PD and hypertension who presents to the ED with fever, chills, and shortness of breath while finishing up dialysis on his own. Per Thylin at bedside she reports that he does dialysis himself nightly. Patient also reports that he is compliant with his medications. Patient also reports that he ambulates with a cane. Patient denies any recent trauma or injury, recent sick contacts, recent travels, chest pain, abdominal pain, nausea, vomiting, diarrhea, or urinary symptoms. Sepsis with pneumonia Non ST-elevation myocardial infarction, ?Type I Rule out structural heart disease Right bundle branch block Hypertension Dyslipidemia ESRD on peritoneal dialysis Obesity 09/18/2025: improving, less coughing possible d/c within 24 hours Plan discussed with: Patient My Orders Orders - CARLOS BOX DO Procedure Category Date Status Time Peritoneal Dialysis PHA 09/18/25 In Process 2.5% Soln 13:30 Date of Service: Sep 18, 2025 Billing Provider: CARLOS BOX DO Common Visit Codes: [id number] INP/OBS CARE(HIGH) CARLOS BOX DO Sep 18, 2025 23:11
[2025-09-19] VITALS (20 sets, daily range): BP systolic 113–127; BP diastolic 59–76; PULSE 53–64; RESP 14–18; TEMP 97.8–99.7; O2SAT 95–100
[2025-09-19 06:34] LABS: Hematocrit 30.2 % (41.0-53.0); Hemoglobin 10.4 g/dL (13.5-17.5); Mean Corpuscular Hemoglobin 31.3 pg (28.0-32.0); Mean Corpuscular Volume 90.9 fL (80.0-100.0); Nucleated Red Blood Cells % 0.0 %
--- NOTE | 2025-09-19 14:19 | ECG ---
[facility] Test Date: 2025-09-15 Test Time: 08:52:57 Pat Name: SUSANA GARDUNO Department: Room: 0207T A Gender: M Scenic Designer: LEONEL : 1950 Requested By: CELENA CAT Order Number: [id number] Reading MD: David Rush Measurements Intervals [place] Rate: 74 P: 80 ME: 187 QRS: 52 QRSD: 147 T: -3 QT: 387 QTc: 430 Interpretive Statements Sinus rhythm Right bundle branch block Probable anteroseptal infarct, old Electronically Signed On 09-20-2025 17:38:19 PST by David Rush Please click the below link to view image of tracing.
--- NOTE | 2025-09-19 20:29 | DVHPN2 ---
Progress Note - Dictate Date Seen: Sep 19, 2025 Has the PT tested + for MRSA If YES, has PT been informed?: No Medical Necessity Reason Pt with a Central, PICC or Fol: No Subjective Patient was seen and evaluated in follow up. No acute events overnight. Cough is improving. Patient remains stable on room air. vital signs Vital Sign Date Time Temp Pulse Resp B/P (MAP) Pulse Ox O2 Delivery O2 Flow Rate FiO2 09/19/25 19:46 Room Air* 0 21 09/19/25 18:22 61 14 100 09/19/25 16:52 98.3 124/76 (92) 98.3 Total Intake and Output 09/18/25 09/18/25 09/19/25 15:00 23:00 07:00 Intake Total 2450 ml 2000 ml Output Total 300 ml 2 ml Balance 2150 ml 1998 ml medications Current Medications Medications Dose Ordered Sig/Yuri Route Start Time Stop Time Status Last Admin Dose Admin Nitroglycerin 0.4 mg Q5MINP PRN SL 09/15/25 12:30 Morphine Sulfate 2 mg Q30M PRN IV 09/15/25 12:30 Amlodipine Besylate 5 mg BID PO 09/15/25 22:00 09/19/25 09:23 5 MG Hydralazine HCl 50 mg TID PO 09/15/25 22:00 09/19/25 14:32 50 MG Losartan Potassium 100 mg DAILY PO 09/16/25 10:00 09/19/25 09:20 100 MG Sevelamer HCl 800 mg TIDWM PO 09/15/25 18:00 09/19/25 18:00 800 MG Carvedilol 25 mg Q12HR PO 09/15/25 22:00 09/19/25 09:21 25 MG Atorvastatin Calcium 20 mg HS PO 09/15/25 22:00 09/18/25 21:25 20 MG Furosemide 40 mg DAILY IV 09/16/25 10:00 09/19/25 09:18 40 MG Vancomycin HCl 0 ml @ 0 mls/hr PER PHARMACY IV 09/15/25 15:15 Ceftriaxone Sodium 50 ml @ 100 mls/hr DAILY@09 IV 09/16/25 09:00 09/19/25 09:24 100 MLS/HR Albuterol 2.5 mg Q4HWA [facility] 09/15/25 18:00 09/19/25 18:17 2.5 MG Ipratropium [place] 0.5 mg Q4HWA NEB 09/15/25 18:00 09/19/25 18:17 0.5 MG Aspirin 81 mg DAILY PO 09/16/25 10:00 09/19/25 09:25 81 MG Acetaminophen 650 mg Q6HP PRN PO 09/15/25 16:30 09/15/25 20:45 650 MG Mupirocin 1 applic DAILY TOP 09/16/25 10:00 09/19/25 10:00 1 APPLIC Nitroglycerin 0.4 mg Q5MINP PRN SL 09/15/25 17:30 UNV Morphine Sulfate 2 mg Q30M PRN IV 09/15/25 17:30 UNV Enoxaparin Sodium 80 mg DAILY SC 09/16/25 10:00 09/19/25 09:24 80 MG Docusate Sodium 100 mg BIDPRN PRN PO 09/17/25 15:45 09/17/25 16:14 100 MG Saccharomyces Boulardii 250 mg DAILY PO 09/18/25 10:00 09/19/25 09:22 250 MG Lactulose 15 ml Q6HP PRN PO 09/17/25 16:15 Peritoneal Dialysis Solution 2,000 ml Q6H IP 09/18/25 13:30 Hold 09/19/25 18:00 2,000 ML objective Vitals and nursing notes reviewed. General Appearance: Cooperative, In no acute distress. HEENT: Atraumatic, PERRLA, EOMI, Mucous membr. moist/pink Respiratory: Normal effort.No wheezes, rales Cardiovascular: Regular rate, Normal S1, Normal S2 Abdominal: Normal bowel sounds, Soft, Non-tended, Non-distended. Extremities: No deformity. No clubbing, No cyanosis, No edema Neuro: Alert, Oriented X3, Normal speech, Normal tone, Sensation intact Psych/Mental Status: Mental status NL, Mood NL laboratory and microbiology Laboratory Tests 09/19/25 05:20 09/16/25 08:52 Test 09/16/25 08:52 Range/Units Serum Glucose 111 H 74-106 mg/dL Problem List Fever NSTEMI likely type 2 Leukocytosis likely due to pneumonia ESRD on peritoneal dialysis History of hypertension Assessment/Plan Agree with current supportive medical care. PD treatments with 1.5% dialysate. Currently using 2.5% as pharmacy is out of 1.5% IV antibiotics with Vancomycin and Ceftriaxone. MedNeb breathing treatments. Pain management prn. Home medications as ordered. Renal diet. DVT / GI prophylaxis. Additional plan as per the hospital course. Plan discussed with: Patient, Other (RN) DIANN LANIER DO Sep 19, 2025 20:29
[2025-09-20] VITALS (14 sets, daily range): BP systolic 118–135; BP diastolic 67–78; PULSE 53–60; RESP 14–18; TEMP 98–98.2; O2SAT 96–100
[2025-09-20] MEDS: PERITONEAL DIALYSIS 2.5% IP SCH ×2 (00:14→12:00)
--- NOTE | 2025-09-20 07:22 | ECG ---
[facility] Test Date: 2025-09-15 Test Time: 17:39:04 Pat Name: SUSANA GARDUNO Department: ED Room: 0207T A Gender: M Yard Coordinator: LYUDMILA : 1950 Requested By: FERNANDO CHACON Order Number: [id number] Reading MD: David Rush Measurements Intervals [place] Rate: 80 P: 33 NM: 155 QRS: 27 QRSD: 140 T: -6 QT: 378 QTc: 436 Interpretive Statements Sinus rhythm Right bundle branch block Electronically Signed On 09-20-2025 17:40:39 PST by David Rush Please click the below link to view image of tracing.
--- NOTE | 2025-09-20 07:22 | ECG ---
[facility] Test Date: 2025-09-15 Test Time: 11:54:07 Pat Name: SUSANA GARDUNO Department: ED Room: 0207T A Gender: M Film Sound Coordinator: LYUDMILA : 1950 Requested By: FERNANDO CHACON Order Number: [id number] Reading MD: David Rush Measurements Intervals [place] Rate: 73 P: 78 [place]: 185 QRS: 34 QRSD: 148 T: 9 QT: 387 QTc: 427 Interpretive Statements Sinus rhythm Right bundle branch block Baseline wander in lead(s) V1 Electronically Signed On 09-20-2025 17:38:43 PST by David Rush Please click the below link to view image of tracing.
--- NOTE | 2025-09-20 07:22 | ECG ---
[facility] Test Date: 2025-09-15 Test Time: 16:13:32 Pat Name: SUSANA GARDUNO Department: Room: 0207T A Gender: M Rd Project Manager: HAYDE : 1950 Requested By: FERNANDO CHACON Order Number: [id number] Reading MD: David Rush Measurements Intervals [place] Rate: 109 P: 82 [place]: 116 QRS: 35 QRSD: 130 T: 13 QT: 336 QTc: 453 Interpretive Statements Sinus tachycardia Right bundle branch block Minimal ST elevation, inferior leads Electronically Signed On 09-20-2025 17:40:36 PST by David Rush Please click the below link to view image of tracing.
--- NOTE | 2025-09-20 13:19 | ECG ---
[facility] Test Date: 2025-09-16 Test Time: 02:25:57 Pat Name: SUSANA GARDUNO Department: ED Room: 0207T A Gender: M Photographic Process Worker: NORMAN : 1950 Requested By: FERNANDO CHACON Order Number: [id number] Reading MD: David Rush Measurements Intervals [place] Rate: 58 P: 71 [place]: 194 QRS: 44 QRSD: 152 T: 19 QT: 462 QTc: 454 Interpretive Statements Sinus rhythm Right bundle branch block Electronically Signed On 09-20-2025 17:41:00 PST by David Rush Please click the below link to view image of tracing.
[2025-09-20] MEDS ORDERED: VANCOMYCIN 500mg/100mL 100 ML IV ONE (14:00)
--- NOTE | 2025-09-20 20:36 | DVHPN2 ---
Progress Note - Dictate Date Seen: Sep 20, 2025 Has the PT tested + for MRSA If YES, has PT been informed?: No Medical Necessity Reason Pt with a Central, PICC or Fol: No Subjective Patient was seen and evaluated in follow up. No acute events overnight. Patient reports feeling better. Has remained stable on RA. Planned for discharge home. vital signs Vital Sign Date Time Temp Pulse Resp B/P (MAP) Pulse Ox O2 Delivery O2 Flow Rate FiO2 09/20/25 16:36 98.2 53 18 135/77 (96) 96 98.2 09/20/25 10:00 Room Air* 0 21 Total Intake and Output 09/19/25 09/19/25 09/20/25 15:00 23:00 07:00 Intake Total 750 ml 700 ml Balance 750 ml 700 ml medications Current Medications Medications Dose Ordered Sig/Yuri Route Start Time Stop Time Status Last Admin Dose Admin Nitroglycerin 0.4 mg Q5MINP PRN SL 09/15/25 17:30 UNV Morphine Sulfate 2 mg Q30M PRN IV 09/15/25 17:30 UNV objective Vitals and nursing notes reviewed. General Appearance: Cooperative, In no acute distress. HEENT: Atraumatic, PERRLA, EOMI, Mucous membr. moist/pink Respiratory: Normal effort.No wheezes, rales Cardiovascular: Regular rate, Normal S1, Normal S2 Abdominal: Normal bowel sounds, Soft, Non-tended, Non-distended. Extremities: No deformity. No clubbing, No cyanosis, No edema Neuro: Alert, Oriented X3, Normal speech, Normal tone, Sensation intact Psych/Mental Status: Mental status NL, Mood NL laboratory and microbiology Laboratory Tests 09/20/25 05:50 09/19/25 05:20 09/16/25 08:52 Test 09/16/25 08:52 Range/Units Serum Glucose 111 H 74-106 mg/dL Problem List Fever NSTEMI likely type 2 Leukocytosis likely due to pneumonia ESRD on peritoneal dialysis History of hypertension Assessment/Plan DC planning in progress. Resume PD therapy per previous prescription. Follow up with Renal Care. Cleared for discharge from Nephrology standpoint. Dietary Evaluation Review Comments: Nutrition Recommendation: 1) Renal standard diet 2) Nephro-maryuri 1 tab daily 3) Monitor PO intake, lab values, weight trend, and I/O Expected Outcomes/Goals: Intake to meet >75% estimated needs FU 3-5 days Plan discussed with: Patient, Other (RN) DIANN LANIER DO Sep 20, 2025 20:36
--- NOTE | 2025-09-20 23:23 | DVHDS2 ---
Discharge Summary Date of Admission Sep 15, 2025 at 17:18 Date of Discharge: Sep 20, 2025 Labs/Diagnostic Data: Laboratory Results Test 09/20/25 05:50 09/19/25 05:20 09/18/25 10:36 09/16/25 11:20 Creatinine 6.45 mg/dL (0.700-1.30) Glomerular Filtration Rate Calc 8 mL/min (>90) Random Vancomycin Level 16.2 ug/mL (5-10) White Blood Count 6.7 10^3/uL (4.4-10.8) Red Blood Count 3.32 10^6/uL (4.5-5.90) Hemoglobin 10.4 g/dL (13.5-17.5) Hematocrit 30.2 % (41.0-53.0) Mean Corpuscular Volume 90.9 fL (80.0-100.0) Mean Corpuscular Hemoglobin 31.3 pg (28.0-32.0) Mean Corpuscular Hemoglobin Concent 34.4 g/dL (32.0-36.0) Red Cell Distribution Width 13.7 % (11.8-14.3) Platelet Count 135 10^3/uL (140-450) Mean Platelet Volume 8.1 fL (6.9-10.8) Neutrophils (%) (Auto) 65.2 % (37.0-80.0) Lymphocytes (%) (Auto) 11.5 % (10.0-50.0) Monocytes (%) (Auto) 16.6 % (0.0-12.0) Eosinophils (%) (Auto) 5.8 % (0.0-7.0) Basophils (%) (Auto) 0.9 % (0.0-2.0) Neutrophils # (Auto) 4.4 10 ^3/uL (1.6-8.6) Lymphocytes # (Auto) 0.8 10 ^3/uL (0.4-5.4) Monocytes # (Auto) 1.1 10 ^3/uL (0-1.3) Eosinophils # (Auto) 0.4 10 ^3/uL (0-0.8) Basophils # (Auto) 0.1 10 ^3/uL (0-0.2) Nucleated Red Blood Cells 0.0 % Differential Total Cells Counted 100.0 (100) Neutrophils % (Manual) 60 (37.0-80.0) Band Neutrophils % (Manual) 5 Lymphocytes % (Manual) 11 (10.0-50.0) Monocytes % (Manual) 20 (0-12) Eosinophils % (Manual) 4 (0-7) Basophils % (Manual) 0 (0.0-2.0) Metamyelocytes % (manual) 0 Myelocytes % (Manual) 0 Promyelocytes % (Manual) 0 Blast Cells % (Manual) 0 Reactive Lymphocytes 0 Platelet Estimate Decreased Prothrombin Time 11.3 sec (9.3-11.8) Prothrombin Time INR 1.07 (0.9-1.15) Activated Partial Thromboplast Time 56.0 SEC (24.5-34.5) Test 09/16/25 08:52 09/16/25 02:55 09/15/25 11:07 09/15/25 10:35 Sodium Level 137 mmol/L (136-145) Potassium Level 4.2 mmol/L (3.5-5.1) Chloride Level 103 mmol/L (98-107) Carbon Dioxide Level 22 mmol/L (20-31) Anion Gap 12 (5-15) Blood Urea Nitrogen 38 mg/dL (9-23) BUN/Creatinine Ratio 5.6 (10.0-20.0) Serum Glucose 111 mg/dL (74-106) Lactic Acid Level 1.2 mmol/L (0.4-2.0) Calcium Level 7.4 mg/dL (8.7-10.4) Total Bilirubin 0.3 mg/dL (0.2-1.0) Aspartate Amino Transferase (AST) 33 U/L (13-40) Alanine Aminotransferase (ALT) 27 U/L (7-40) Alkaline Phosphatase 73 U/L (46-116) Total Protein 6.2 g/dL (5.7-8.2) Albumin 3.3 g/dL (3.2-4.8) Troponin I High Sensitivity 3972 ng/L (</=54) Urine Color Light-yellow (Yellow) Urine Clarity Clear (Clear) Urine pH 7.5 (5.0-9.0) Urine Specific [place] 1.012 (1.001-1.035) Urine Protein 2+ (Negative) Urine Ketones Negative (Negative) Urine Blood Trace /uL (Negative) Urine Nitrite Negative (Negative) Urine Bilirubin Negative (Negative) Urine Urobilinogen Normal mg/dL (Negative) Urine Leukocyte Esterase Negative /uL (Negative) Urine RBC None seen /hpf (0 - 3) Urine Microscopic WBC /HPF (0-3) Urine Squamous Epithelial Cells None seen /hpf (<5) Urine Bacteria None seen /hpf (None Seen) Urine Glucose Trace mg/dL (Normal) Influenza Type A Antigen Negative (Negative) Influenza Type B Antigen Negative (Negative) Test 09/15/25 08:50 09/15/25 08:37 09/15/25 07:04 SARS-CoV-2 Antigen (Rapid) Negative (NEGATIVE) Magnesium Level 1.9 mg/dL (1.6-2.6) Triglycerides Level 74 mg/dL (< 150) Cholesterol Level 131 mg/dL (< 200) LDL Cholesterol 67 mg/dL (< 100) HDL Cholesterol 50 mg/dL (40-59) Thyroid Stimulating Hormone (TSH) 1.14 uIU/mL (0.55-4.78) Hemoglobin A1c 5.4 % A1C (<5.7) B-Type Natriuretic Peptide 222.36 pg/mL (0-100) Other Laboratory Tests 09/20/25 05:50 09/19/25 05:20 09/16/25 08:52 Brief Hx & Hospital Course: Jaime Aparicio is a 74-year-old male with past medical history of ESRD on PD and hypertension who presents to the ED with fever, chills, and shortness of breath while finishing up dialysis on his own. Per Thylin at bedside she reports that he does dialysis himself nightly. Patient also reports that he is compliant with his medications. Patient also reports that he ambulates with a cane. Patient denies any recent trauma or injury, recent sick contacts, recent travels, chest pain, abdominal pain, nausea, vomiting, diarrhea, or urinary symptoms. Sepsis with pneumonia Non ST-elevation myocardial infarction, ?Type I Rule out structural heart disease Right bundle branch block Hypertension Dyslipidemia ESRD on peritoneal dialysis Obesity 09/18/2025: improving, less coughing possible d/c within 24 hours 09/19/2025: continue with dialysis and iv abx possible d/c in 24 hours 09/20/2025: discharged to home Condition at Discharge: Fair Final Diagnosis/Problems List see above Discharge Disposition: Home Discharge Instruct/Medications Diet: Cardiac 2g Na,low cholest Activity: No Restrictions, As Tolerated Scheduled Amlodipine Besylate (Amlodipine Besylate), 1 TAB PO BID, (Reported) Aspirin (Aspir-Low), 81 MG PO DAILY, (Reported) B-Complex W/ C & Folic Acid (Nat-Zen), 1 TAB PO DAILY, (Reported) Calcitriol (Calcitriol), 1 CAP PO DAILY, (Reported) Famotidine (Pepcid Tablet), 10 MG PO DAILY, (Reported) Furosemide (Furosemide), 40 MG PO BIDD, (Reported) Hydralazine Hcl (Hydralazine Hcl), 1 TAB PO TID, (Reported) Lactulose (Lactulose), 10 GM PO TID, (Reported) Losartan Potassium (Losartan Potassium), 1 TAB PO DAILY, (Reported) Sevelamer Carbonate (Sevelamer Carbonate), 1 TAB PO TID, (Reported) Sevelamer Carbonate (Renvela), 2 TAB PO TID, (Reported) Sodium Zirconium Cyclosilicate (Lokelma), 10 GM PO DAILY, (Reported) Miscellaneous Medications Carvedilol (Carvedilol), TAB PO, (Reported) Simvastatin (Simvastatin), 1 TAB PO, (Reported) Discharge Statement: "Patient was advised to return to the ER or call 911 if any headaches, dizziness, shortness of breath, chest pain, abdominal pain, bleeding, fevers, or worsening of medical condition. Patient was counseled about treatment plan, medications, possible side effects, patientverbalized understanding. All questions were answered to the best of my ability. This discharge took greater then 30 minutes in planning, reviewing documentation, counseling the patient, and discussing with other team members." ASSESSMENT ASSESSMENT Assessment CARLOS BOX DO Sep 20, 2025 23:23
--- NOTE | 2025-09-20 23:23 | DVHPN2 ---
Reviewed: Care Plan, H&P, Labs, Medications Changes from previous H/P or p: No Changes General: Per HPI Respiratory: Shortness of breath Objective Vitals Vital Signs Date Time Temp Pulse Resp B/P (MAP) Pulse Ox O2 Delivery O2 Flow Rate FiO2 09/20/25 16:36 98.2 53 18 135/77 (96) 96 98.2 09/20/25 10:00 Room Air* 0 21 Intake/Output Intake and Output 09/20/25 07:00 Intake Total 1450 ml Balance 1450 ml Intake Oral 1450 ml # Voids 8 # Bowel Movements 1 General Appearance: Alert, Oriented X3, Cooperative Cardiovascular: Regular rate, Normal S1 Abdomen: Normal bowel sounds Neuro: Normal gait, Normal speech Medications Current Medications Medications Dose Ordered Sig/Yuri Route Start Time Stop Time Status Last Admin Dose Admin Nitroglycerin 0.4 mg Q5MINP PRN SL 09/15/25 17:30 UNV Morphine Sulfate 2 mg Q30M PRN IV 09/15/25 17:30 UNV Laboratory Results Laboratory Tests 09/16/25 08:52 09/19/25 05:20 09/20/25 05:50 Urinalysis Test 09/15/25 11:07 Urine Color Light-yellow (Yellow) Urine Clarity Clear (Clear) Urine pH 7.5 (5.0-9.0) Urine Specific [place] 1.012 (1.001-1.035) Urine Protein 2+ (Negative) H Urine Ketones Negative (Negative) Urine Blood Trace /uL (Negative) H Urine Nitrite Negative (Negative) Urine Bilirubin Negative (Negative) Urine Urobilinogen Normal mg/dL (Negative) Urine Leukocyte Esterase Negative /uL (Negative) Urine RBC None seen /hpf (0 - 3) Urine Microscopic WBC /HPF (0-3) Urine Squamous Epithelial Cells None seen /hpf (<5) Urine Bacteria None seen /hpf (None Seen) Urine Glucose Trace mg/dL (Normal) Microbiology Microbiology Date/Time Source Procedure Growth Status 09/16/25 16:26 Nose MRSA Screen - Final Complete 09/15/25 07:25 Blood Blood Culture - Final Klebsiella pneumoniae Complete Labs and/or images reviewed: Labs reviewed by me, Image(s) reviewed by me Assessment/Plan Assessment/Plan Jaime Aparicio is a 74-year-old male with past medical history of ESRD on PD and hypertension who presents to the ED with fever, chills, and shortness of breath while finishing up dialysis on his own. Per Olga at bedside she reports that he does dialysis himself nightly. Patient also reports that he is compliant with his medications. Patient also reports that he ambulates with a cane. Patient denies any recent trauma or injury, recent sick contacts, recent travels, chest pain, abdominal pain, nausea, vomiting, diarrhea, or urinary symptoms. Sepsis with pneumonia Non ST-elevation myocardial infarction, ?Type I Rule out structural heart disease Right bundle branch block Hypertension Dyslipidemia ESRD on peritoneal dialysis Obesity 09/18/2025: improving, less coughing possible d/c within 24 hours 09/19/2025: continue with dialysis and iv abx possible d/c in 24 hours Plan discussed with: Patient, Spouse My Orders Orders - CARLOS BOX DO Procedure Category Date Status Time Dietary NOTICE 09/20/25 Transmitted Recommendations 08:11 Discharge DISCHARGE 09/20/25 Transmitted 15:47 Date of Service: Sep 19, 2025 Billing Provider: CARLOS BOX DO Common Visit Codes: [id number] INP/OBS CARE(HIGH) CARLOS BOX DO Sep 20, 2025 23:23
== END 2025-09-20 17:35 | disposition home or self-care (01) | DRG 871 ==
LOC: ER 06:04 → EDBD 06:04 → OVERFLOW 17:18 → TELE-CENTR 09-16 14:55
PROVIDERS: ADMIT Internal Medicine; ATTEND Internal Medicine
PROC: 3E1M39Z Irrigation of Peritoneal Cavity using Dialysate, Percutaneous Approach (ICD-10-PCS; principal; 2025-09-15)
PROC: 3E1M39Z Irrigation of Peritoneal Cavity using Dialysate, Percutaneous Approach (ICD-10-PCS; 2025-09-16)
PROC: 3E1M39Z Irrigation of Peritoneal Cavity using Dialysate, Percutaneous Approach (ICD-10-PCS; 2025-09-17)
PROC: 3E1M39Z Irrigation of Peritoneal Cavity using Dialysate, Percutaneous Approach (ICD-10-PCS; 2025-09-18)
PROC: 3E1M39Z Irrigation of Peritoneal Cavity using Dialysate, Percutaneous Approach (ICD-10-PCS; 2025-09-19)
PROC: 3E1M39Z Irrigation of Peritoneal Cavity using Dialysate, Percutaneous Approach (ICD-10-PCS; 2025-09-20)
DX: A41.59 Other Gram-negative sepsis (principal); I21.4 Non-ST elevation (NSTEMI) myocardial infarction; N18.6 End stage renal disease; J15.69 Pneumonia due to other Gram-negative bacteria; I12.0 Hypertensive chronic kidney disease with stage 5 chronic kidney disease or end stage renal disease; E87.20 Acidosis, unspecified; Z99.2 Dependence on renal dialysis; E66.9 Obesity, unspecified; Z20.822 Contact with and (suspected) exposure to COVID-19; Z96.651 Presence of right artificial knee joint; E78.5 Hyperlipidemia, unspecified; I45.10 Unspecified right bundle-branch block; Z68.30 Body mass index [BMI] 30.0-30.9, adult; Z79.899 Other long term (current) drug therapy; Z79.82 Long term (current) use of aspirin
CPT/HCPCS: 36415; 71045; 76604; 80048; 80053; 80061; 80202; 81001; 82565; 83036; 83605; 83735; 83880; 84443; 84484; 85007; 85025; 85027; 85610; 85730; 87040; 87077; 87081; 87186; 87426; 87804; 93005; 93306; 94640; 96365; 96372; 96375; 97110; 97116; 97163; 97530; 99291; G0378